=== PATIENT | female | born 1980 | race Caucasian/White ===

== ENCOUNTER 2018-06-20 14:32 | Observation (INO) ==
[2018-06-20] MEDS ORDERED: 0.9 % Sodium Chloride 1,000 ML IVC ONE (15:13)
[2018-06-20] MEDS ORDERED: Folic Acid 1 MG in D5% in Water 50 ML IVPB ONE (15:13)
[2018-06-20] MEDS ORDERED: *HR* LORazepam 2 MG/ML VIAL IVP ONE ×3 (15:13→19:15)
[2018-06-20] MEDS ORDERED: Thiamine (B-1) 100 MG in D5% in Water 50 ML IVPB ONE (15:13)
[2018-06-20] MEDS ORDERED: Isovue-370 500 ML INFUS..BTL IV ONE (15:44)
--- NOTE | 2018-06-20 15:56 | Emergency Department Note ---
Disposition Clinical Impression: Alcohol withdrawal syndrome Qualifiers: Complication of substance-induced condition: uncomplicated Qualified Code(s): F10.230 - Alcohol dependence with withdrawal, uncomplicated Disposition: Admitted As Inpatient Referrals: NONE,PCP [Primary Care Provider] - General Adult HPI - General Chief complaint: ED Alcohol Abuse Stated complaint: Alcohol withdrawl Time Seen by Provider: 06/20/18 14:41 Source: patient Limitations: no limitations - History of Present Illness Pain Scale: 0 - Related Data Home Medications Medication Instructions Recorded Confirmed Ibuprofen 08/13/16 Penicillin V Potassium 08/13/16 Prevacid 08/13/16 Prozac 08/13/16 TraZODone 08/13/16 Ultram 08/13/16 08/13/16 Viibryd 08/13/16 Zantac 08/13/16 Previous Rx's Medication Instructions Recorded Clindamycin HCl [Cleocin HCl] 300 mg PO QID #40 capsule 08/13/16 Hydrocodone/Acetaminophen [[place] 1 tab PO Q6H PRN #12 tab 08/13/16 5-325 Tablet] Allergies Allergy/AdvReac Type Severity Reaction Status Date / Time codeine Allergy Hives Verified 08/13/16 12:57 topiramate [From Topamax] Allergy Headache Verified 08/13/16 12:57 metoclopramide [From Reglan] AdvReac Hives Verified 08/13/16 12:57 Past Medical History - Past Medical History Medical history: Reports: non-contributory Psychiatric history: Reports: depression - Social History Smoking Status: Never smoker Smokeless Tobacco Status: No Alcohol use: Reports: heavy, recent Drug use: Reports: none Physical Exam - General Limitations: no limitations General appearance: alert, anxious Course Vital Signs Temperature 98.4 F 06/20/18 14:36 Pulse Rate 135 06/20/18 14:36 Respiratory Rate 24 06/20/18 14:36 Blood Pressure 133/79 06/20/18 14:36 O2 Sat by Pulse Oximetry 99 06/20/18 14:36 Temperature 98.4 F 06/20/18 15:05 Pulse Rate 88 06/20/18 15:37 Respiratory Rate 20 06/20/18 15:37 Blood Pressure 139/79 06/20/18 15:37 O2 Sat by Pulse Oximetry 100 06/20/18 15:37 Oxygen Delivery Oxygen Delivery Room Air Medical Decision Making - Lab Data Lab Results 06/20/18 06/20/18 Range/Units 15:35 15:38 Urine Test Negative (Negative) Ur Drug Screen Interp See Below Attestation Statement - Attestation Attestation: I examined this patient and my medical decision-making was reviewed with the Resident Physician. I agree with the documented findings, disposition and treatment plan as described except to the extent set forth below. 37 year old shannon bossente to the eD with complaints of nausea and vomitting and she is daily vodka drinker and that she has been unable to drink as [facility] as she typcally does because of the nausea and vomitting htat has been going on for the past few days. PAtnet is tahcyardiac and hypetensive and experneicn gincreased diarrhea. wE are concernd about withdrawl from alcohol in addition to other intraabdominla pathology. We will do labs, ABCT and start CIWA protocol and admit to medicine
[2018-06-20 15:58] LABS: Amphetamine Screen,Urine Negative ng/mL (Cutoff=1000); Barbiturate Screen,Urine Negative ng/mL (Cutoff=200); Benzodiazepines Screen,Urine Negative ng/mL (Cutoff=200); Cannabinoid Screen,Urine Negative ng/mL (Cutoff = 50); Cocaine Screen,Urine Negative ng/mL (Cutoff= 300); Opiate Screen,Urine Negative ng/mL (Cutoff=300); Phencyclidine Screen,Urine Negative ng/mL (Cutoff=25)
[2018-06-20 15:59] LABS: Basophils % 0.3 %; Hematocrit 42.8 % (35.3-44.9); Hemoglobin 15.1 g/dL (11.5-15.4); Immature Granulocytes % 0.5 % (0-4); Lymphocytes # 1.3 K/mcL (0.6-4.6); Lymphocytes % 11.1 %; Mean Corpuscular HGB Conc 35.3 g/dL (31.6-35.5); Mean Corpuscular Hemoglobin 32.5 pg (28.0-33.3); Mean Corpuscular Volume 92.2 fL (83.0-100.0); Mean Platelet Volume 9.4 fL (9.4-12.4); Neutrophils # 9.6 K/mcL (1.6-8.9); Platelet Count 223 K/mcL (140-400); Red Blood Count 4.64 M/mcL (3.82-4.97); Red Cell Distribution Width 13.5 % (11.5-14.5); Segmented Neutrophils % 80.1 %
[2018-06-20 16:18] LABS: Troponin I < 0.03 ng/mL (< 0.04)
[2018-06-20 16:19] LABS: Alanine Aminotransferase 58 Units/L (7-52); Albumin 4.8 g/dL (3.5-5.7); Albumin/Globulin Ratio 1.4 (1.1-2.2); Alkaline Phosphatase 67 Units/L (34-104); Aspartate Amino Transferase 92 Units/L (13-39); BUN/Creatinine Ratio 8 (6-26); Bilirubin,Direct 0.2 mg/dL (0.0-0.2); Bilirubin,Indirect 0.5 mg/dL (0.0-1.2); Bilirubin,Total 0.7 mg/dL (0.3-1.0); Blood Urea Nitrogen 6 mg/dL (6-20); Calcium 9.3 mg/dL (8.6-10.3); Carbon Dioxide 21 mEq/L (23-29); Chloride 97 mEq/L (98-107); Ethanol 405 mg/dL (Less than 10); Globulin 3.5 g/dL (2.4-3.5); Glucose 118 mg/dL (70-105); Lipase 20 Units/L (11-82); Osmolality,Calculated 287 (280-300); Potassium 3.2 mEq/L (3.5-5.1); Sodium 139 mEq/L (136-145); Total Protein 8.3 g/dL (6.4-8.9); eGFR For Non-African Americans > 60 (> 60)
[2018-06-20 16:35] LABS: Bilirubin,Urine Negative (Negative); Clarity,Urine Clear (Clear); Color,Urine Yellow (Yellow); Glucose,Urine (UA) Normal (Normal); Ketones,Urine 15 mg/dL (Negative)
[2018-06-20 16:36] LABS: Blood,Urine Negative (Negative); Leukocyte Esterase,Urine Negative (Negative); Nitrite,Urine Negative (Negative); Protein,Urine 100 mg/dL (Neg-Trace); Specific Gravity,Urine 1.011 (1.010-1.025); Squamous Epithelial Cell,Urine Few per lpf (None-Few); Urobilinogen,Urine Normal (Normal); WBC,Urine 0-3 per hpf (0-3)
[2018-06-20] MEDS ORDERED: Ondansetron 4 MG/2 ML VIAL IVP ONE (16:51)
--- NOTE | 2018-06-20 16:52 | Emergency Department Note ---
Disposition Clinical Impression: Alcohol withdrawal syndrome Qualifiers: Complication of substance-induced condition: uncomplicated Qualified Code(s): F10.230 - Alcohol dependence with withdrawal, uncomplicated Nausea and vomiting Qualifiers: Vomiting type: unspecified Vomiting Intractability: unspecified Qualified Code( s): R11.2 - Nausea with vomiting, unspecified Disposition: Admitted As Inpatient Condition: Fair Referrals: NONE,PCP [Primary Care Provider] - Forms: ED Satisfaction Letter Time of Disposition: 18:42 General Adult HPI - General Chief complaint: ED Alcohol Abuse Stated complaint: Alcohol withdrawl Time Seen by Provider: 06/20/18 14:41 Source: patient Mode of arrival: ambulatory Limitations: no limitations Nursing Notes Reviewed: Yes Vital Signs Reviewed: Yes - History of Present Illness HPI Narrative: Patient is a 29-year-old female with past medical history: Cystectomy and alcoholism presents emergency room in for evaluation of nausea, vomiting, diffuse body aches, chills that has been going on for the past 3 days. According to the patient and her friend at bedside she attempted stopping alcohol consumption 3 weeks ago and was unsuccessful and of drinking more alcohol is resolved. She states that she drinks liquor store vodka throughout the day. She denies any other type of alcohol use and denies any other drug ingestion. Pain Scale: 0 - Related Data Home Medications Medication Instructions Recorded Confirmed Vilazodone HCl [Viibryd] 40 mg PO DAILY 06/20/18 06/20/18 clonazePAM [Klonopin] 1 mg PO 2-3XD PRN 06/20/18 06/20/18 raNITIdine HCl [Zantac] 150 mg PO BID 06/20/18 06/20/18 traZODone [TraZODone] 50 - 100 mg PO HS 06/20/18 06/20/18 Allergies Allergy/AdvReac Type Severity Reaction Status Date / Time metoclopramide [From Reglan] Allergy Swelling Verified 06/20/18 16:10 of Lip/Tongue/Throat codeine AdvReac Gastrointestinal Verified 06/20/18 16:10 Upset topiramate [From Topamax] AdvReac See Verified 06/20/18 16:10 Comments All systems ED: reviewed and negative except as stated. Review of Systems: As Per HPI Constitutional: Reports: chills, weakness, other (Body aches). Denies: fever Cardiovascular: Denies: chest pain, palpitations, dyspnea on exertion Respiratory: Denies: cough, dyspnea, wheezes Gastrointestinal: Reports: abdominal pain, nausea, vomiting Genitourinary: Denies: urgency, dysuria, frequency Musculoskeletal: Denies: back pain, neck pain Integumentary: Denies: rash Neurological: Denies: headache, weakness, numbness, paresthesias, confusion Past Medical History - Past Medical History Attestation: Yes The following information was validated with the patient. Medical history: Reports: non-contributory Psychiatric history: Reports: depression - Social History Smoking Status: Never smoker Smokeless Tobacco Status: No Alcohol use: Reports: heavy, recent Drug use: Reports: none Physical Exam CONSTITUTIONAL: Patient is very anxious on exam. She is sitting up in bed rocking back and forth. Tachycardic. HEAD: Normocephalic; atraumatic EYES: PERRL, no scleral icterus NOSE: The nose is normal in appearance without rhinorrhea NECK: No JVD or distended neck veins RESP: Normal chest excursion with respiration; breath sounds clear and equal bilaterally; no wheezes, rhonchi, or rales CARD: Regular rhythm, without murmurs, rub or gallop ABD: Non-distended; non-tender, soft, without rigidity, rebound or guarding,no pulsatile mass CHEST: No pain with palpation SKIN: Normal for age and race; warm and dry without diaphoresis ; no apparent lesions EXTREMITIES: Pulses are 2 plus and equal times 4 extremities, no peripheral edema or calf muscle pain - General Limitations: no limitations General appearance: alert, anxious Course Course Narrative: Plan at this time is to do a broad workup including cardiac and abdominal examination. She will undergo a chest x-ray, EKG, basic labs as well as a CT of abdomen and pelvis. She also be treated with thiamine and Ativan for consideration for alcohol withdrawal. - Reevaluation(s) Reevaluation #1: Patient's lab work was unremarkable. Discussed with the patient plan is time is to admit her for EtOH withdrawal as well as intractable nausea and vomiting. Patient agrees with this plan and she is actually requesting admission for treatment of her alcohol withdrawal symptoms. I discussed the patient's case with the hospitalist on-call he agrees to accept the patient. Time: 18:42 Vital Signs Temperature 98.4 F 06/20/18 14:36 Pulse Rate 135 09/13/18 14:36 Respiratory Rate 24 06/20/18 14:36 Blood Pressure 133/79 06/20/18 14:36 O2 Sat by Pulse Oximetry 99 06/20/18 14:36 Temperature 98.4 F 06/20/18 15:05 Pulse Rate 116 06/20/18 17:26 Respiratory Rate 19 06/20/18 17:26 Blood Pressure 135/94 06/20/18 17:26 O2 Sat by Pulse Oximetry 100 06/20/18 17:26 Oxygen Delivery Oxygen Delivery Room Air Medical Decision Making - Medical Records Medical records reviewed: Yes I reviewed the patient's medical records. - Lab Data Lab results reviewed: Yes I reviewed the patient's lab results. Result diagrams: 06/20/18 15:13 06/20/18 15:13 Lab Results 06/20/18 06/20/18 06/20/18 Range/Units 15:13 15:13 15:30 WBC 11.9 H (4.3-11.1) K/mcL RBC 4.64 (3.82-4.97) M/mcL Hgb 15.1 (11.5-15.4) g/dL Hct 42.8 (35.3-44.9) % MCV 92.2 (83.0-100.0) fL MCH 32.5 (28.0-33.3) pg MCHC 35.3 (31.6-35.5) g/dL RDW 13.5 (11.5-14.5) % Plt Count 223 (140-400) K/mcL MPV 9.4 (9.4-12.4) fL Immature Gran % 0.5 (0-4) % Seg Neutrophils % 80.1 % Lymphocytes % 11.1 % Monocytes % 8.0 % Eosinophils % 0.0 % Basophils % 0.3 % Neutrophils # 9.6 H (1.6-8.9) K/mcL Lymphocytes # 1.3 (0.6-4.6) K/mcL Monocytes # 1.0 (0.0-1.3) K/mcL Eosinophils # 0.0 (0.0-0.6) K/mcL Basophils # 0.0 (0.0-0.2) K/mcL Sodium 139 (136-145) mEq/L Potassium 3.2 L (3.5-5.1) mEq/L Chloride 97 L (98-107) mEq/L Carbon Dioxide 21 L (23-29) mEq/L BUN 6 (6-20) mg/dL Creatinine 0.72 (0.60-1.20) mg/dL Est GFR ( Amer) > 60 (> 60) Est GFR (Non-Af Amer) > 60 (> 60) BUN/Creatinine Ratio 8 (6-26) Glucose 118 H (70-105) mg/dL Calculated Osmolality 287 (280-300) Calcium 9.3 (8.6-10.3) mg/dL Total Bilirubin 0.7 (0.3-1.0) mg/dL Direct Bilirubin 0.2 (0.0-0.2) mg/dL Indirect Bilirubin 0.5 (0.0-1.2) mg/dL AST 92 H (13-39) Units/L ALT 58 H (7-52) Units/L Alkaline Phosphatase 67 (34-104) Units/L Troponin I < 0.03 (< 0.04) ng/mL Serum Total Protein 8.3 (6.4-8.9) g/dL Albumin 4.8 (3.5-5.7) g/dL Globulin 3.5 (2.4-3.5) g/dL Albumin/Globulin Ratio 1.4 (1.1-2.2) Lipase 20 (11-82) Units/L Urine Color Yellow (Yellow) Urine Clarity Clear (Clear) Urine pH 6.0 (5.0-8.0) pH Units Ur Specific [place] 1.011 (1.010-1.025) Urine Protein 100 H (Neg-Trace) mg/dL Urine Glucose (UA) Normal (Normal) mg/dL Urine Ketones 15 H (Negative) mg/dL Urine Blood Negative (Negative) Urine Nitrite Negative (Negative) Urine Bilirubin Negative (Negative) Urine Urobilinogen Normal (Normal) mg/dL Ur Leukocyte Esterase Negative (Negative) Urine Microscopic WBC 0-3 (0-3) per hpf Ur Squamous Epith Cells Few (None-Few) per lpf Urine Test (Negative) Urine Opiates Screen (Qljqoe=845) ng/mL Ur Barbiturates Screen (Deszfh=290) ng/mL Ur Phencyclidine Scrn (Cutoff=25) ng/mL Ur Amphetamines Screen (Vperxo=1430) ng/mL U Benzodiazepines Scrn (Ckkixi=868) ng/mL Urine Cocaine Screen (Cutoff= 300) ng/mL U Marijuana (THC) Screen (Cutoff = 50) ng/mL Ur Drug Screen Interp Ethyl Alcohol 405 H (Less than 10) mg/dL 06/20/18 06/20/18 Range/Units 15:35 15:38 WBC (4.3-11.1) K/mcL RBC (3.82-4.97) M/mcL Hgb (11.5-15.4) g/dL Hct (35.3-44.9) % MCV (83.0-100.0) fL MCH (28.0-33.3) pg MCHC (31.6-35.5) g/dL RDW (11.5-14.5) % Plt Count (140-400) K/mcL MPV (9.4-12.4) fL Immature Gran % (0-4) % Seg Neutrophils % % Lymphocytes % % Monocytes % % Eosinophils % % Basophils % % Neutrophils # (1.6-8.9) K/mcL Lymphocytes # (0.6-4.6) K/mcL Monocytes # (0.0-1.3) K/mcL Eosinophils # (0.0-0.6) K/mcL Basophils # (0.0-0.2) K/mcL Sodium (136-145) mEq/L Potassium (3.5-5.1) mEq/L Chloride (98-107) mEq/L Carbon Dioxide (23-29) mEq/L BUN (6-20) mg/dL Creatinine (0.60-1.20) mg/dL Est GFR ( Amer) (> 60) Est GFR (Non-Af Amer) (> 60) BUN/Creatinine Ratio (6-26) Glucose (70-105) mg/dL Calculated Osmolality (280-300) Calcium (8.6-10.3) mg/dL Total Bilirubin (0.3-1.0) mg/dL Direct Bilirubin (0.0-0.2) mg/dL Indirect Bilirubin (0.0-1.2) mg/dL AST (13-39) Units/L ALT (7-52) Units/L Alkaline Phosphatase (34-104) Units/L Troponin I (< 0.04) ng/mL Serum Total Protein (6.4-8.9) g/dL Albumin (3.5-5.7) g/dL Globulin (2.4-3.5) g/dL Albumin/Globulin Ratio (1.1-2.2) Lipase (11-82) Units/L Urine Color (Yellow) Urine Clarity (Clear) Urine pH (5.0-8.0) pH Units Ur Specific [place] (1.010-1.025) Urine Protein (Neg-Trace) mg/dL Urine Glucose (UA) (Normal) mg/dL Urine Ketones (Negative) mg/dL Urine Blood (Negative) Urine Nitrite (Negative) Urine Bilirubin (Negative) Urine Urobilinogen (Normal) mg/dL Ur Leukocyte Esterase (Negative) Urine Microscopic WBC (0-3) per hpf Ur Squamous Epith Cells (None-Few) per lpf Urine Test Negative (Negative) Urine Opiates Screen Negative (Lwwtti=475) ng/mL Ur Barbiturates Screen Negative (Wgexmc=557) ng/mL Ur Phencyclidine Scrn Negative (Cutoff=25) ng/mL Ur Amphetamines Screen Negative (Riocxv=6017) ng/mL U Benzodiazepines Scrn Negative (Vpxbwn=988) ng/mL Urine Cocaine Screen Negative (Cutoff= 300) ng/mL U Marijuana (THC) Screen Negative (Cutoff = 50) ng/mL Ur Drug Screen Interp See Below Ethyl Alcohol (Less than 10) mg/dL - Radiology Data Radiology results reviewed: Yes I reviewed the patient's radiology results. Chest X-Ray 06/20/18 15:13 IMPRESSION: No acute abnormality. D/ / Reece Reyes MD / Reece Reyes MD Interpreting Provider: Reece Reyes MD Abdomen/Pelvis CT 06/20/18 15:44 IMPRESSION: No acute abnormality. D/ / 06/20/2018 17:56:34 Reece Reyes MD / earnold Interpreting Provider: Reece Reyes MD - EKG Data EKG #1 EKG attestation: Yes I reviewed and interpreted this EKG.
[2018-06-20] MEDS ORDERED: clonazePAM 1 MG TABLET PO PRN (20:23)
[2018-06-20] MEDS ORDERED: *HR* LORazepam 2 MG/ML VIAL IVP PRN (20:25)
--- NOTE | 2018-06-20 20:41 | Internal Med History&Physical ---
Date of Encounter: 06/20/18 Time of Encounter: 20:37 Internal Medicine - H&P: HPI Chief complaint: alcohol intoxication Admitted From: Home Plans for Post Hospital Care: Home History of present illness: Ms. Benitez is a 37 year old female with a history of depression and alcohol abuse disorder who is brought in by her boyfriend stating that she has been drinking vodka for 3 days straight without food and having profuse nausea and vomiting. Her last drink was earlier in the day and on arrival she was found to have an alcohol level of 400 and mild hypokalemia. She started going into a degree of withdrawal and is admitted for care. She denies any complaints at this time. She says she is hungry and wishes to eat. She denies abdominal pain. She acknowledges having depression and anxiety disorder but takes her medications intermittently. She has not noticed any blood in her vomitus. She has attempted to quit in the past but was unsuccessful. She denies smoking or illicit drugs. Past Med Surg Social Fam HX - Past Medical History Medical history: non-contributory Psychiatric history: depression - Past Surgical History Additional surgical history: Back sx, Knee sx, elbow sx - Social History Smoking Status: Never smoker Smokeless Tobacco Status: No Alcohol use: heavy, recent Drug use: none Internal Medicine - H&P: Meds Vilazodone HCl [Viibryd] 40 mg PO DAILY 06/20/18 [History] clonazePAM [Klonopin] 1 mg PO 2-3XD PRN 06/20/18 [History] raNITIdine HCl [Zantac] 150 mg PO BID 06/20/18 [History] traZODone [TraZODone] 50 - 100 mg PO HS 06/20/18 [History] 3 Allergy/AdvReac Type Severity Reaction Status Date / Time metoclopramide [From Reglan] Allergy Swelling Verified 06/20/18 16:10 of Lip/Tongue/Throat codeine AdvReac Gastrointestinal Verified 06/20/18 16:10 Upset topiramate [From Topamax] AdvReac See Verified 06/20/18 16:10 Comments All Systems PM: A 10-system review of systems was performed and is negative for pertinent findings except as documented above in the HPI. - Constitutional Vitals: Temp Pulse Resp BP Pulse Ox 99.6 F 102 16 135/62 98 06/20/18 20:26 06/20/18 20:26 06/20/18 20:26 06/20/18 20:26 06/20/18 20:26 Exam: Vitals: Reviewed General: Well developed white woman sitting comfortably in bed in no acute distress Skin: Bruises noted on thighs. HEENT: Moist mucous membranes. No conjunctivae pallor. Neck: No lymphadenopathy. No JVD. No carotid bruits. No palpable thyroid. Chest: Normal thoracic expansion. Normal breath sounds. Clear to auscultation. Heart: Normal S1 & S2; tachycardic. No rubs or murmurs. Abdomen: Non-distended, soft and non-tender to palpation. No peritoneal reaction. Liver is normal in size. Spleen is not palpable. Extremities: No clubbing, cyanosis or edema. No calf tenderness. Normal distal pulses. Neurological: Awake, alert and oriented to person, place and time. No focal deficits. No tremor. Psych: Affect appropriate. Internal Med - H&P Results - Labs CBC & Chem 7: 06/20/18 15:13 06/20/18 15:13 - Assessment and plan (1) Alcohol withdrawal syndrome Current Visit: Yes Status: Acute Assessment and plan: Reports a history of severe withdrawal symptoms in the past but no seizures. Will place on CIWA protocol, HOB elevation and aspiration precautions. Lorazepam prn ordered. IV folate and thiamine administered. Will transition to PO tomorrow. Start IV resuscitation with D5/NS w/ KCL for hypokalemia. Qualifiers: Complication of substance-induced condition: with unspecified complication Qualified Code(s): F10.239 - Alcohol dependence with withdrawal, unspecified (2) Nausea and vomiting Current Visit: Yes Status: Acute Assessment and plan: Promethazine prn ordered. Likely secondary to alcohol intoxication and now undergoing withdrawal. Lipase normal. No anomalies on CT imaging. Qualifiers: Vomiting type: unspecified Vomiting Intractability: non-intractable Qualified Code(s): R11.2 - Nausea with vomiting, unspecified (3) Hypokalemia Current Visit: Yes Status: Acute Assessment and plan: Secondary to poor oral intake. KCL supplementation added. Check Mg. (4) Anxiety Current Visit: Yes Status: Acute Assessment and plan: Will continue clonazepam as needed. Will hold trazodone as could possibly lower seizure threshold. (5) Depression Current Visit: Yes Status: Acute Assessment and plan: No suicidal ideation or harm ideas at this time. Will hold her anti-depressant for now. Qualifiers: Depression Type: unspecified Qualified Code(s): F32.9 - Major depressive disorder, single episode, unspecified (6) DVT prophylaxis Current Visit: Yes Status: Acute Assessment and plan: SubQ heparin ordered. - Time Spent With Patient Total time spent is greater than 50% in coordination of care (as documented) at patient's floor/unit and/or counseling patient: Greater than 35 minutes
[2018-06-20] MEDS ORDERED: *HR* LORazepam 2 MG/ML VIAL ONE (21:26)
[2018-06-20] MEDS: *HR* LORazepam 2 MG/ML VIAL IVP PRN ×2 (21:35→23:37)
[2018-06-20] MEDS: *HR* Promethazine 25 MG/ML VIAL IVP PRN (22:19)
[2018-06-20] MEDS: *HR* Heparin 5,000 UNIT/ML VIAL SQ SCH (22:19)
[2018-06-20] MEDS: Famotidine 20 MG TABLET PO SCH (22:20)
[2018-06-20] MEDS: Potassium Chloride 40 MEQ in D5% in 0.9% NACL 1,000 ML IVC SCH (23:37)
[2018-06-21] MEDS ORDERED: clonazePAM 1 MG TABLET PO PRN (00:35)
[2018-06-21] MEDS ORDERED: Ibuprofen 600 MG TABLET PO ONE (04:11)
[2018-06-21] MEDS ORDERED: *HR* LORazepam 2 MG/ML VIAL IVP STA (04:26)
[2018-06-21] MEDS ORDERED: *HR* LORazepam 2 MG/ML VIAL ONE (04:28)
[2018-06-21] MEDS: *HR* Heparin 5,000 UNIT/ML VIAL SQ SCH ×3 (05:41→20:21)
[2018-06-21] MEDS: *HR* LORazepam 2 MG/ML VIAL IVP PRN ×8 (05:41→21:29)
[2018-06-21 05:47] LABS: Basophils % 0.3 %; Hematocrit 36.7 % (35.3-44.9); Immature Granulocytes % 0.3 % (0-4); Lymphocytes # 0.4 K/mcL (0.6-4.6); Lymphocytes % 4.4 %; Mean Corpuscular HGB Conc 34.1 g/dL (31.6-35.5); Mean Corpuscular Hemoglobin 32.3 pg (28.0-33.3); Mean Corpuscular Volume 94.8 fL (83.0-100.0); Mean Platelet Volume 10.3 fL (9.4-12.4); Monocytes # 0.7 K/mcL (0.0-1.3); Monocytes % 9.1 %; Neutrophils # 6.8 K/mcL (1.6-8.9); Platelet Count 128 K/mcL (140-400); Red Blood Count 3.87 M/mcL (3.82-4.97); Red Cell Distribution Width 13.7 % (11.5-14.5); Segmented Neutrophils % 85.9 %
[2018-06-21 05:55] LABS: Hemoglobin 12.5 g/dL (11.5-15.4)
[2018-06-21 06:04] LABS: Alanine Aminotransferase 41 Units/L (7-52); Albumin/Globulin Ratio 1.5 (1.1-2.2); Alkaline Phosphatase 55 Units/L (34-104); Aspartate Amino Transferase 55 Units/L (13-39); BUN/Creatinine Ratio 9 (6-26); Bilirubin,Direct 0.2 mg/dL (0.0-0.2); Bilirubin,Indirect 0.8 mg/dL (0.0-1.2); Blood Urea Nitrogen 7 mg/dL (6-20); Carbon Dioxide 25 mEq/L (23-29); Chloride 100 mEq/L (98-107); Ethanol < 10 mg/dL (Less than 10); Globulin 2.7 g/dL (2.4-3.5); Glucose 162 mg/dL (70-105); Magnesium 1.6 mg/dL (1.6-2.6); Osmolality,Calculated 284 (280-300); Sodium 136 mEq/L (136-145); Total Protein 6.7 g/dL (6.4-8.9); eGFR For Non-African Americans > 60 (> 60)
[2018-06-21] MEDS: Thiamine (B-1) 100 MG TABLET PO SCH (08:11)
[2018-06-21] MEDS: Vitamin B Complex/Vit C/Vit E 1 EACH TABLET PO SCH (08:11)
[2018-06-21] MEDS: Famotidine 20 MG TABLET PO SCH ×2 (08:11→20:21)
[2018-06-21] MEDS: Potassium Chloride 40 MEQ in D5% in 0.9% NACL 1,000 ML IVC SCH (08:11)
[2018-06-21] MEDS: Folic Acid 1 MG TABLET PO SCH (08:11)
--- NOTE | 2018-06-21 18:49 | Internal Med Progress Note ---
Hospitalist Progress Note - Encounter Date of Encounter: 06/21/18 Time of Encounter: 18:46 - Subjective Interval History: Recent was seen and examined earlier this morning. Currently patient appears anxious and sweaty. Patient states "I feel as if I am going to jump out of my skin"slight tremor noted - Exam Vitals: Temp Pulse Resp BP Pulse Ox 98.6 F 91 18 132/81 99 06/21/18 16:21 06/21/18 16:21 06/21/18 16:21 06/21/18 16:21 06/21/18 16:21 Exam: Vitals: Reviewed General: Well developed white woman -appears diaphoretic slight tremor anxious Skin: Bruises noted on thighs. HEENT: Moist mucous membranes. No conjunctivae pallor. Neck: No lymphadenopathy. No JVD. No carotid bruits. No palpable thyroid. Chest: Normal thoracic expansion. Normal breath sounds. Clear to auscultation. Heart: Normal S1 & S2; tachycardic. No rubs or murmurs. Abdomen: Non-distended, soft and non-tender to palpation. No peritoneal reaction. Liver is normal in size. Spleen is not palpable. Extremities: No clubbing, cyanosis or edema. No calf tenderness. Normal distal pulses. Neurological: Awake, alert and oriented to person, place and time. No focal deficits. No tremor. Psych: Affect appropriate. - Assessment and Plan (1) Alcohol withdrawal syndrome Current Visit: Yes Status: Acute Assessment and Plan: Reports a history of severe withdrawal symptoms in the past but no seizures. Will place on CIWA protocol, HOB elevation and aspiration precautions. Lorazepam prn ordered. Thiamine and folate orally Monitor electrolytes and replace as needed We will start on Librium and monitor (2) Nausea and vomiting Current Visit: Yes Status: Acute Assessment and Plan: Promethazine prn ordered. Likely secondary to alcohol intoxication and now undergoing withdrawal. Lipase normal. No anomalies on CT imaging. (3) Anxiety Current Visit: Yes Status: Acute Assessment and Plan: Will stop clonazepam patient will be on Librium Will hold trazodone as could possibly lower seizure threshold. (4) Depression Current Visit: Yes Status: Acute Assessment and Plan: No suicidal ideation or harm ideas at this time. Will hold her anti-depressant for now. (5) DVT prophylaxis Current Visit: Yes Status: Acute Assessment and Plan: SubQ heparin ordered. (6) Hypokalemia Current Visit: Yes Status: Acute Assessment and Plan: Stable at this time continue to monitor and replace as needed. - Time Spent with Patient Total time spent is greater than 50% in coordination of care (as documented) at patient's floor/unit and/or counseling patient: Internal Medicine: Result - Labs CBC & Chem 7: 06/21/18 04:14 06/21/18 04:14 Labs: Short CBC 06/21/18 Range/Units 04:14 WBC 7.9 (4.3-11.1) K/mcL Hgb 12.5 D (11.5-15.4) g/dL Hct 36.7 (35.3-44.9) % Plt Count 128 L (140-400) K/mcL Neutrophils # 6.8 (1.6-8.9) K/mcL BMP 06/21/18 04:14 Sodium 136 Potassium 4.0 Chloride 100 Carbon Dioxide 25 BUN 7 Creatinine 0.80 Glucose 162 H Calcium 9.0 Liver Function 06/21/18 Range/Units 04:14 Total Bilirubin 1.0 (0.3-1.0) mg/dL Direct Bilirubin 0.2 (0.0-0.2) mg/dL AST 55 H (13-39) Units/L ALT 41 (7-52) Units/L Alkaline Phosphatase 55 (34-104) Units/L Albumin 4.0 (3.5-5.7) g/dL Consult Discharge Plan - Plan Referrals: NONE,PCP [Primary Care Provider] - (1) Alcohol withdrawal syndrome Qualifiers: Complication of substance-induced condition: with unspecified complication Qualified Code(s): F10.239 - Alcohol dependence with withdrawal, unspecified (2) Nausea and vomiting Qualifiers: Vomiting type: unspecified Vomiting Intractability: non-intractable Qualified Code(s): R11.2 - Nausea with vomiting, unspecified (4) Depression Qualifiers: Depression Type: unspecified Qualified Code(s): F32.9 - Major depressive disorder, single episode, unspecified
[2018-06-21] MEDS ORDERED: *HR* LORazepam 2 MG/ML VIAL IVP ONE (23:17)
[2018-06-22] MEDS: *HR* LORazepam 2 MG/ML VIAL IVP PRN ×4 (04:31→21:15)
[2018-06-22] MEDS: *HR* Heparin 5,000 UNIT/ML VIAL SQ SCH ×3 (04:35→21:15)
[2018-06-22 05:28] LABS: Basophils % 0.4 %; Eosinophils % 0.8 %; Hematocrit 35.3 % (35.3-44.9); Hemoglobin 11.6 g/dL (11.5-15.4); Immature Granulocytes % 0.2 % (0-4); Lymphocytes # 0.7 K/mcL (0.6-4.6); Lymphocytes % 13.3 %; Mean Corpuscular HGB Conc 32.9 g/dL (31.6-35.5); Mean Corpuscular Hemoglobin 31.8 pg (28.0-33.3); Mean Corpuscular Volume 96.7 fL (83.0-100.0); Mean Platelet Volume 10.2 fL (9.4-12.4); Monocytes # 0.6 K/mcL (0.0-1.3); Monocytes % 11.7 %; Neutrophils # 3.6 K/mcL (1.6-8.9); Platelet Count 114 K/mcL (140-400); Red Blood Count 3.65 M/mcL (3.82-4.97); Red Cell Distribution Width 13.3 % (11.5-14.5); Segmented Neutrophils % 73.6 %
[2018-06-22 05:42] LABS: BUN/Creatinine Ratio 13 (6-26); Blood Urea Nitrogen 9 mg/dL (6-20); Carbon Dioxide 26 mEq/L (23-29); Chloride 103 mEq/L (98-107); Glucose 97 mg/dL (70-105); Magnesium 1.7 mg/dL (1.6-2.6); Osmolality,Calculated 281 (280-300); Potassium 3.8 mEq/L (3.5-5.1); Sodium 136 mEq/L (136-145); eGFR For Non-African Americans > 60 (> 60)
[2018-06-22] MEDS: Vitamin B Complex/Vit C/Vit E 1 EACH TABLET PO SCH (08:28)
[2018-06-22] MEDS: (Vilazodone Hcl [Viibryd] 40 MG) PO SCH (08:28)
[2018-06-22] MEDS: Thiamine (B-1) 100 MG TABLET PO SCH (08:28)
[2018-06-22] MEDS: Famotidine 20 MG TABLET PO SCH ×2 (08:28→21:15)
[2018-06-22] MEDS: Folic Acid 1 MG TABLET PO SCH (08:28)
[2018-06-22] MEDS: *HR* Promethazine 25 MG/ML VIAL IVP PRN (09:42)
--- NOTE | 2018-06-22 11:41 | Internal Med Progress Note ---
Hospitalist Progress Note - Encounter Date of Encounter: 06/22/18 Time of Encounter: 11:40 - Subjective Interval History: Recent was seen and examined earlier this morning. Currently patient appears less anxious no tremors noted at this time. Patient has been tolerating oral intake. No signs of seizure activity. Patient states that she feels bad - Exam Vitals: Temp Pulse Resp BP Pulse Ox 98.2 F 95 16 136/92 99 06/22/18 07:53 06/22/18 07:53 06/22/18 07:53 06/22/18 07:53 06/22/18 08:30 Exam: Vitals: Reviewed General: Well developed white woman -appears calm no tremors noted Skin: Bruises noted on thighs. HEENT: Moist mucous membranes. No conjunctivae pallor. Neck: No lymphadenopathy. No JVD. No carotid bruits. No palpable thyroid. Chest: Normal thoracic expansion. Normal breath sounds. Clear to auscultation. Heart: Normal S1 & S2; tachycardic. No rubs or murmurs. Abdomen: Non-distended, soft and non-tender to palpation. No peritoneal reaction. Liver is normal in size. Spleen is not palpable. Extremities: No clubbing, cyanosis or edema. No calf tenderness. Normal distal pulses. Neurological: Awake, alert and oriented to person, place and time. No focal deficits. No tremor. Psych: Affect appropriate. - Assessment and Plan (1) Alcohol withdrawal syndrome Current Visit: Yes Status: Acute Assessment and Plan: Reports a history of severe withdrawal symptoms in the past but no seizures. Will place on [facility] protocol, HOB elevation and aspiration precautions. Lorazepam prn ordered. Thiamine and folate orally Monitor electrolytes and replace as needed We will start on Librium and monitor 06/22-symptoms improved since adding Librium we will continue -also continue with [facility] assessment electrolytes stable at this time (2) Nausea and vomiting Current Visit: Yes Status: Acute Assessment and Plan: Promethazine prn ordered. Likely secondary to alcohol intoxication and now undergoing withdrawal. Lipase normal. No anomalies on CT imaging. 06/22-improving today able to tolerate oral intake (3) Anxiety Current Visit: Yes Status: Acute Assessment and Plan: Will stop clonazepam patient will be on Librium Will hold trazodone as could possibly lower seizure threshold. Appears calm today (4) Depression Current Visit: Yes Status: Acute Assessment and Plan: No suicidal ideation or harm ideas at this time. Will hold her anti-depressant for now. (5) DVT prophylaxis Current Visit: Yes Status: Acute Assessment and Plan: SubQ heparin ordered. (6) Hypokalemia Current Visit: Yes Status: Acute Assessment and Plan: Stable at this time continue to monitor and replace as needed. - Time Spent with Patient Total time spent is greater than 50% in coordination of care (as documented) at patient's floor/unit and/or counseling patient: Internal Medicine: Result - Labs CBC & Chem 7: 06/22/18 04:09 06/22/18 04:09 Labs: Short CBC 06/22/18 Range/Units 04:09 WBC 5.0 (4.3-11.1) K/mcL Hgb 11.6 (11.5-15.4) g/dL Hct 35.3 (35.3-44.9) % Plt Count 114 L (140-400) K/mcL Neutrophils # 3.6 (1.6-8.9) K/mcL BMP 06/22/18 04:09 Sodium 136 Potassium 3.8 Chloride 103 Carbon Dioxide 26 BUN 9 Creatinine 0.68 Glucose 97 Calcium 9.0 Consult Discharge Plan - Plan Referrals: NONE,PCP [Primary Care Provider] - (1) Alcohol withdrawal syndrome Qualifiers: Complication of substance-induced condition: with unspecified complication Qualified Code(s): F10.239 - Alcohol dependence with withdrawal, unspecified (2) Nausea and vomiting Qualifiers: Vomiting type: unspecified Vomiting Intractability: non-intractable Qualified Code(s): R11.2 - Nausea with vomiting, unspecified (4) Depression Qualifiers: Depression Type: unspecified Qualified Code(s): F32.9 - Major depressive disorder, single episode, unspecified
[2018-06-23] MEDS: *HR* LORazepam 2 MG/ML VIAL IVP PRN ×2 (03:35→08:26)
[2018-06-23] MEDS: *HR* Heparin 5,000 UNIT/ML VIAL SQ SCH ×3 (06:09→19:48)
[2018-06-23 06:38] LABS: Basophils % 0.4 %; Eosinophils # 0.1 K/mcL (0.0-0.6); Eosinophils % 1.4 %; Hematocrit 38.3 % (35.3-44.9); Hemoglobin 13.1 g/dL (11.5-15.4); Immature Granulocytes % 0.2 % (0-4); Lymphocytes # 0.7 K/mcL (0.6-4.6); Lymphocytes % 13.2 %; Mean Corpuscular HGB Conc 34.2 g/dL (31.6-35.5); Mean Corpuscular Hemoglobin 33.5 pg (28.0-33.3); Mean Platelet Volume 10.3 fL (9.4-12.4); Monocytes # 0.7 K/mcL (0.0-1.3); Monocytes % 12.8 %; Neutrophils # 3.7 K/mcL (1.6-8.9); Platelet Count 107 K/mcL (140-400); Red Blood Count 3.91 M/mcL (3.82-4.97); Red Cell Distribution Width 12.9 % (11.5-14.5)
[2018-06-23 07:00] LABS: BUN/Creatinine Ratio 14 (6-26); Blood Urea Nitrogen 10 mg/dL (6-20); Calcium 9.2 mg/dL (8.6-10.3); Carbon Dioxide 26 mEq/L (23-29); Chloride 103 mEq/L (98-107); Glucose 116 mg/dL (70-105); Osmolality,Calculated 284 (280-300); Sodium 137 mEq/L (136-145); eGFR For Non-African Americans > 60 (> 60)
[2018-06-23] MEDS: (Vilazodone Hcl [Viibryd] 40 MG) PO SCH (08:25)
[2018-06-23] MEDS: Famotidine 20 MG TABLET PO SCH ×2 (08:26→19:48)
[2018-06-23] MEDS: Folic Acid 1 MG TABLET PO SCH (08:26)
[2018-06-23] MEDS: Thiamine (B-1) 100 MG TABLET PO SCH (08:26)
[2018-06-23] MEDS: Vitamin B Complex/Vit C/Vit E 1 EACH TABLET PO SCH (08:26)
--- NOTE | 2018-06-23 11:27 | Internal Med Progress Note ---
Hospitalist Progress Note - Encounter Date of Encounter: 06/23/18 Time of Encounter: 11:24 - Subjective Interval History: Patient was seen and examined earlier this morning. Currently patient appears less anxious no tremors noted at this time. She has been ambulating in the halls without difficulty no nausea tolerating more oral intake - Exam Vitals: Temp Pulse Resp BP Pulse Ox 98.5 F 82 16 126/80 99 06/23/18 07:37 06/23/18 07:37 06/23/18 07:37 06/23/18 07:37 06/23/18 08:30 Exam: Vitals: Reviewed General: Well developed white woman -appears calm no tremors noted Skin: Bruises noted on thighs. HEENT: Moist mucous membranes. No conjunctivae pallor. Neck: No lymphadenopathy. No JVD. No carotid bruits. No palpable thyroid. Chest: Normal thoracic expansion. Normal breath sounds. Clear to auscultation. Heart: Normal S1 & S2; tachycardic. No rubs or murmurs. Abdomen: Non-distended, soft and non-tender to palpation. No peritoneal reaction. Liver is normal in size. Spleen is not palpable. Extremities: No clubbing, cyanosis or edema. No calf tenderness. Normal distal pulses. Neurological: Awake, alert and oriented to person, place and time. No focal deficits. No tremor. Psych: Affect appropriate. - Assessment and Plan (1) Alcohol withdrawal syndrome Current Visit: Yes Status: Acute Assessment and Plan: Reports a history of severe withdrawal symptoms in the past but no seizures. Will place on [facility] protocol, HOB elevation and aspiration precautions. Lorazepam prn ordered. Thiamine and folate orally Monitor electrolytes and replace as needed We will start on Librium and monitor 06/22-symptoms improved since adding Librium we will continue -also continue with [facility] assessment electrolytes stable at this time 06/23 symptoms are improving patient has been eating and ambulating in the hallways without lites are stable at this time we will discuss with social insurance analyst tomorrow concerning discharge planning continue with [facility] for now (2) Nausea and vomiting Current Visit: Yes Status: Acute Assessment and Plan: Promethazine prn ordered. Likely secondary to alcohol intoxication and now undergoing withdrawal. Lipase normal. No anomalies on CT imaging. 06/22-improving today able to tolerate oral intake 06/23 improved tolerating oral intake (3) Anxiety Current Visit: Yes Status: Acute Assessment and Plan: Will stop clonazepam patient will be on Librium Will hold trazodone as could possibly lower seizure threshold. Appears calm today 06/23 much improved appears calm ambulating in the hallway (4) Depression Current Visit: Yes Status: Acute Assessment and Plan: No suicidal ideation or harm ideas at this time. Will hold her anti-depressant for now. (5) DVT prophylaxis Current Visit: Yes Status: Acute Assessment and Plan: SubQ heparin ordered. (6) Hypokalemia Current Visit: Yes Status: Acute Assessment and Plan: Stable at this time continue to monitor and replace as needed. - Time Spent with Patient Total time spent is greater than 50% in coordination of care (as documented) at patient's floor/unit and/or counseling patient: Internal Medicine: Result - Labs CBC & Chem 7: 06/23/18 06:05 06/23/18 06:05 Labs: Short CBC 06/23/18 Range/Units 06:05 WBC 5.1 (4.3-11.1) K/mcL Hgb 13.1 D (11.5-15.4) g/dL Hct 38.3 (35.3-44.9) % Plt Count 107 L (140-400) K/mcL Neutrophils # 3.7 (1.6-8.9) K/mcL BMP 06/23/18 06:05 Sodium 137 Potassium 4.0 Chloride 103 Carbon Dioxide 26 BUN 10 Creatinine 0.72 Glucose 116 H Calcium 9.2 Consult Discharge Plan - Plan Referrals: NONE,PCP [Primary Care Provider] - (1) Alcohol withdrawal syndrome Qualifiers: Complication of substance-induced condition: with unspecified complication Qualified Code(s): F10.239 - Alcohol dependence with withdrawal, unspecified (2) Nausea and vomiting Qualifiers: Vomiting type: unspecified Vomiting Intractability: non-intractable Qualified Code(s): R11.2 - Nausea with vomiting, unspecified (4) Depression Qualifiers: Depression Type: unspecified Qualified Code(s): F32.9 - Major depressive disorder, single episode, unspecified
[2018-06-24] MEDS: *HR* LORazepam 2 MG/ML VIAL IVP PRN (03:54)
[2018-06-24] MEDS: *HR* Heparin 5,000 UNIT/ML VIAL SQ SCH ×3 (05:00→20:05)
[2018-06-24 06:18] LABS: Basophils % 0.5 %; Eosinophils # 0.1 K/mcL (0.0-0.6); Eosinophils % 0.9 %; Hematocrit 38.7 % (35.3-44.9); Hemoglobin 12.9 g/dL (11.5-15.4); Immature Granulocytes % 0.2 % (0-4); Lymphocytes # 0.8 K/mcL (0.6-4.6); Lymphocytes % 13.3 %; Mean Corpuscular HGB Conc 33.3 g/dL (31.6-35.5); Mean Corpuscular Hemoglobin 32.3 pg (28.0-33.3); Mean Corpuscular Volume 96.8 fL (83.0-100.0); Mean Platelet Volume 10.3 fL (9.4-12.4); Monocytes # 0.7 K/mcL (0.0-1.3); Monocytes % 11.9 %; Neutrophils # 4.2 K/mcL (1.6-8.9); Platelet Count 121 K/mcL (140-400); Red Cell Distribution Width 13.2 % (11.5-14.5); Segmented Neutrophils % 73.2 %
[2018-06-24 06:35] LABS: BUN/Creatinine Ratio 18 (6-26); Blood Urea Nitrogen 14 mg/dL (6-20); Calcium 9.2 mg/dL (8.6-10.3); Carbon Dioxide 28 mEq/L (23-29); Chloride 102 mEq/L (98-107); Glucose 110 mg/dL (70-105); Osmolality,Calculated 283 (280-300); Potassium 4.1 mEq/L (3.5-5.1); Sodium 136 mEq/L (136-145); eGFR For Non-African Americans > 60 (> 60)
[2018-06-24] MEDS: Vitamin B Complex/Vit C/Vit E 1 EACH TABLET PO SCH (09:53)
[2018-06-24] MEDS: Thiamine (B-1) 100 MG TABLET PO SCH (09:53)
[2018-06-24] MEDS: Folic Acid 1 MG TABLET PO SCH (09:53)
[2018-06-24] MEDS: Famotidine 20 MG TABLET PO SCH ×2 (09:53→20:07)
[2018-06-24] MEDS: (Vilazodone Hcl [Viibryd] 40 MG) PO SCH (09:54)
[2018-06-24] MEDS ORDERED: Acetaminophen 325 MG TABLET PO PRN (14:22)
--- NOTE | 2018-06-24 15:46 | Internal Med Progress Note ---
Hospitalist Progress Note - Encounter Date of Encounter: 06/24/18 Time of Encounter: 15:44 - Subjective Interval History: Patient was seen and examined earlier this morning. Other appropriate no tremors noted has been intimating in hallways without difficulties. Patient states she feels much better. Has been tolerating oral intake - Exam Vitals: Temp Pulse Resp BP Pulse Ox 97.8 F 67 18 96/53 99 06/24/18 11:32 06/24/18 11:32 06/24/18 11:32 06/24/18 11:32 06/24/18 11:32 Exam: Vitals: Reviewed General: Well developed white woman -appears calm no tremors noted Skin: Bruises noted on thighs. HEENT: Moist mucous membranes. No conjunctivae pallor. Neck: No lymphadenopathy. No JVD. No carotid bruits. No palpable thyroid. Chest: Normal thoracic expansion. Normal breath sounds. Clear to auscultation. Heart: Normal S1 & S2; tachycardic. No rubs or murmurs. Abdomen: Non-distended, soft and non-tender to palpation. No peritoneal reaction. Liver is normal in size. Spleen is not palpable. Extremities: No clubbing, cyanosis or edema. No calf tenderness. Normal distal pulses. Neurological: Awake, alert and oriented to person, place and time. No focal deficits. No tremor. Psych: Affect appropriate. - Assessment and Plan (1) Alcohol withdrawal syndrome Current Visit: Yes Status: Acute Assessment and Plan: Reports a history of severe withdrawal symptoms in the past but no seizures. Will place on [facility] protocol, HOB elevation and aspiration precautions. Lorazepam prn ordered. Thiamine and folate orally Monitor electrolytes and replace as needed We will start on Librium and monitor 06/22-symptoms improved since adding Librium we will continue -also continue with [facility] assessment electrolytes stable at this time 06/23 symptoms are improving patient has been eating and ambulating in the hallways without lites are stable at this time we will discuss with social professionals tomorrow concerning discharge planning continue with [facility] for now 06/24 symptoms are improving patient has been ambulating in hallways without difficulty she has been tolerating oral intake. Discussed with social professionals concerning discharge planning patient requesting outpatient treatment. We will decrease Librium and continue to taper (2) Nausea and vomiting Current Visit: Yes Status: Acute Assessment and Plan: Promethazine prn ordered. Likely secondary to alcohol intoxication and now undergoing withdrawal. Lipase normal. No anomalies on CT imaging. 06/22-improving today able to tolerate oral intake 06/23 improved tolerating oral intake 06/24 no nausea and vomiting at this time tolerating oral intake (3) Anxiety Current Visit: Yes Status: Acute Assessment and Plan: Will stop clonazepam patient will be on Librium Will hold trazodone as could possibly lower seizure threshold. Appears calm today 06/23 much improved appears calm ambulating in the hallway 06/24 much stable at this time (4) Depression Current Visit: Yes Status: Acute Assessment and Plan: No suicidal ideation or harm ideas at this time. Will hold her anti-depressant for now. (5) DVT prophylaxis Current Visit: Yes Status: Acute Assessment and Plan: SubQ heparin ordered. (6) Hypokalemia Current Visit: Yes Status: Acute Assessment and Plan: Stable at this time continue to monitor and replace as needed. - Time Spent with Patient Total time spent is greater than 50% in coordination of care (as documented) at patient's floor/unit and/or counseling patient: Internal Medicine: Result - Labs CBC & Chem 7: 06/24/18 05:28 06/24/18 05:28 Labs: Short CBC 06/24/18 Range/Units 05:28 WBC 5.7 (4.3-11.1) K/mcL Hgb 12.9 (11.5-15.4) g/dL Hct 38.7 (35.3-44.9) % Plt Count 121 L (140-400) K/mcL Neutrophils # 4.2 (1.6-8.9) K/mcL BMP 06/24/18 05:28 Sodium 136 Potassium 4.1 Chloride 102 Carbon Dioxide 28 BUN 14 Creatinine 0.78 Glucose 110 H Calcium 9.2 Consult Discharge Plan - Plan Referrals: NONE,PCP [Primary Care Provider] - (1) Alcohol withdrawal syndrome Qualifiers: Complication of substance-induced condition: with unspecified complication Qualified Code(s): F10.239 - Alcohol dependence with withdrawal, unspecified (2) Nausea and vomiting Qualifiers: Vomiting type: unspecified Vomiting Intractability: non-intractable Qualified Code(s): R11.2 - Nausea with vomiting, unspecified (4) Depression Qualifiers: Depression Type: unspecified Qualified Code(s): F32.9 - Major depressive disorder, single episode, unspecified
[2018-06-25] MEDS: *HR* LORazepam 2 MG/ML VIAL IVP PRN (01:27)
[2018-06-25] MEDS: *HR* Heparin 5,000 UNIT/ML VIAL SQ SCH ×3 (05:23→20:16)
[2018-06-25 06:48] LABS: Basophils % 0.5 %; Eosinophils # 0.1 K/mcL (0.0-0.6); Hematocrit 40.2 % (35.3-44.9); Hemoglobin 13.5 g/dL (11.5-15.4); Immature Granulocytes % 0.3 % (0-4); Lymphocytes # 1.1 K/mcL (0.6-4.6); Mean Corpuscular HGB Conc 33.6 g/dL (31.6-35.5); Mean Corpuscular Hemoglobin 33.1 pg (28.0-33.3); Mean Corpuscular Volume 98.5 fL (83.0-100.0); Mean Platelet Volume 10.5 fL (9.4-12.4); Monocytes # 0.7 K/mcL (0.0-1.3); Monocytes % 12.1 %; Neutrophils # 4.1 K/mcL (1.6-8.9); Platelet Count 128 K/mcL (140-400); Red Blood Count 4.08 M/mcL (3.82-4.97); Red Cell Distribution Width 13.2 % (11.5-14.5); Segmented Neutrophils % 68.1 %
[2018-06-25 07:12] LABS: BUN/Creatinine Ratio 18 (6-26); Blood Urea Nitrogen 14 mg/dL (6-20); Calcium 9.1 mg/dL (8.6-10.3); Carbon Dioxide 28 mEq/L (23-29); Chloride 102 mEq/L (98-107); Glucose 95 mg/dL (70-105); Osmolality,Calculated 282 (280-300); Potassium 3.6 mEq/L (3.5-5.1); Sodium 136 mEq/L (136-145); eGFR For Non-African Americans > 60 (> 60)
[2018-06-25] MEDS: Folic Acid 1 MG TABLET PO SCH (08:16)
[2018-06-25] MEDS: Vitamin B Complex/Vit C/Vit E 1 EACH TABLET PO SCH (08:16)
[2018-06-25] MEDS: (Vilazodone Hcl [Viibryd] 40 MG) PO SCH (08:17)
[2018-06-25] MEDS: Thiamine (B-1) 100 MG TABLET PO SCH (08:17)
[2018-06-25] MEDS: Famotidine 20 MG TABLET PO SCH ×2 (08:50→20:14)
--- NOTE | 2018-06-25 11:24 | Internal Med Progress Note ---
Hospitalist Progress Note - Encounter Date of Encounter: 06/25/18 Time of Encounter: 11:22 - Subjective Interval History: no acute changes overnight, continues to deny s/sx of withdrawal including hallucinations (auditory or visual), tremors, or agitation. Reporting that she is feeling much better today - Exam Vitals: Temp Pulse Resp BP Pulse Ox 98.6 F 70 18 122/79 99 06/25/18 10:08 06/25/18 10:08 06/25/18 10:08 06/25/18 10:06/25/18 10:08 Exam: Vitals: Reviewed General: Well developed white woman -appears calm no tremors noted Skin: Bruises noted on thighs. HEENT: Moist mucous membranes. No conjunctivae pallor. Neck: No lymphadenopathy. No JVD. No carotid bruits. No palpable thyroid. Chest: Normal thoracic expansion. Normal breath sounds. Clear to auscultation. Heart: Normal S1 & S2; tachycardic. No rubs or murmurs. Abdomen: Non-distended, soft and non-tender to palpation. No peritoneal reaction. Liver is normal in size. Spleen is not palpable. Extremities: No clubbing, cyanosis or edema. No calf tenderness. Normal distal pulses. Neurological: Awake, alert and oriented to person, place and time. No focal deficits. No tremor. Psych: Affect appropriate, without agitation, auditory or visual hallucinations - Assessment and Plan (1) Alcohol withdrawal syndrome Current Visit: Yes Status: Acute Assessment and Plan: Reports a history of severe withdrawal symptoms in the past but no seizures. Will place on [facility] protocol, HOB elevation and aspiration precautions. Lorazepam prn ordered. Thiamine and folate orally Monitor electrolytes and replace as needed We will start on Librium and monitor 06/22-symptoms improved since adding Librium we will continue -also continue with [facility] assessment electrolytes stable at this time 06/23 symptoms are improving patient has been eating and ambulating in the hallways without lites are stable at this time we will discuss with group social worker tomorrow concerning discharge planning continue with [facility] for now 06/24 symptoms are improving patient has been ambulating in hallways without difficulty she has been tolerating oral intake. Discussed with group social worker concerning discharge planning patient requesting outpatient treatment. We will decrease Librium and continue to taper 06/25--clinically, patient appears to be without signs or symptoms of withdrawal. She denies any auditory/visual hallucinations. She is not anxious or agitated at this time. No evidence of tremors. Nausea and vomiting and diarrhea have subsided. Continue to down titrate Librium today and stop tomorrow. Refrain from discharging with benzodiazepines with history of alcoholism. Discussed outpatient follow-up and resources regarding treatment for alcoholism. Patient reports that she has a psychiatrist who she follows closely and will discuss AA programs with psychiatrist. rn social services has seen patient during the stay and provided pamphlet/brochures for AA and SA. (2) Nausea and vomiting Current Visit: Yes Status: Resolved Assessment and Plan: Promethazine prn ordered. Likely secondary to alcohol intoxication and now undergoing withdrawal. Lipase normal. No anomalies on CT imaging. 06/22-improving today able to tolerate oral intake 06/23 improved tolerating oral intake 06/24 no nausea and vomiting at this time tolerating oral intake 06/25-resolved (3) Anxiety Current Visit: Yes Status: Acute Assessment and Plan: Will stop clonazepam patient will be on Librium Will hold trazodone as could possibly lower seizure threshold. Appears calm today 06/23 much improved appears calm ambulating in the hallway 06/24 much stable at this time 06/25--appears calm at this time, mood is appropriate without agitation. Does not appear anxious. (4) Depression Current Visit: Yes Status: Acute Assessment and Plan: No suicidal suicidal or homicidal ideation Continue holding her anti-depressant for now, resume tomorrow when Librium was discontinued (5) Hypokalemia Current Visit: Yes Status: Acute Assessment and Plan: Resolved (6) DVT prophylaxis Current Visit: Yes Status: Acute Assessment and Plan: Continue SubQ heparin - Time Spent with Patient Total time spent is greater than 50% in coordination of care (as documented) at patient's floor/unit and/or counseling patient: less than 15 minutes Plan of Care Discussed with: patient Internal Medicine: Result - Labs CBC & Chem 7: 06/25/18 05:10 06/25/18 05:10 Labs: Short CBC 06/25/18 Range/Units 05:10 WBC 6.1 (4.3-11.1) K/mcL Hgb 13.5 (11.5-15.4) g/dL Hct 40.2 (35.3-44.9) % Plt Count 128 L (140-400) K/mcL Neutrophils # 4.1 (1.6-8.9) K/mcL BMP 06/25/18 05:10 Sodium 136 Potassium 3.6 Chloride 102 Carbon Dioxide 28 BUN 14 Creatinine 0.80 Glucose 95 Calcium 9.1 Consult Discharge Plan - Plan Referrals: NONE,PCP [Primary Care Provider] - (1) Alcohol withdrawal syndrome Qualifiers: Complication of substance-induced condition: with unspecified complication Qualified Code(s): F10.239 - Alcohol dependence with withdrawal, unspecified (2) Nausea and vomiting Qualifiers: Vomiting type: unspecified Vomiting Intractability: non-intractable Qualified Code(s): R11.2 - Nausea with vomiting, unspecified (4) Depression Qualifiers: Depression Type: unspecified Qualified Code(s): F32.9 - Major depressive disorder, single episode, unspecified
[2018-06-26] MEDS: *HR* Heparin 5,000 UNIT/ML VIAL SQ SCH (05:45)
[2018-06-26] MEDS: Famotidine 20 MG TABLET PO SCH (07:36)
[2018-06-26] MEDS: Vitamin B Complex/Vit C/Vit E 1 EACH TABLET PO SCH (07:36)
[2018-06-26] MEDS: Folic Acid 1 MG TABLET PO SCH (07:36)
[2018-06-26] MEDS: Thiamine (B-1) 100 MG TABLET PO SCH (07:36)
[2018-06-26] MEDS: (Vilazodone Hcl [Viibryd] 40 MG) PO SCH (07:37)
--- NOTE | 2018-06-26 10:44 | Discharge Summary ---
- NOTES TO OUTPATIENT PROVIDER Notes to Outpatient Provider: Please discuss resources for AA and outpatient ETOH rehab. Please discuss mayda f/u with psychiatrist Date of Encounter: 06/26/18 Time of Encounter: 10:41 - Discharge Diagnosis (1) Alcohol withdrawal syndrome Priority: Primary Status: Acute Assessment and Plan: Reports a history of severe withdrawal symptoms in the past but no seizures. Will place on CIWA protocol, HOB elevation and aspiration precautions. Lorazepam prn ordered. Thiamine and folate orally Monitor electrolytes and replace as needed We will start on Librium and monitor 06/22-symptoms improved since adding Librium we will continue -also continue with CIWA assessment electrolytes stable at this time 06/23 symptoms are improving patient has been eating and ambulating in the hallways without lites are stable at this time we will discuss with administrator social welfare tomorrow concerning discharge planning continue with [facility] for now 06/24 symptoms are improving patient has been ambulating in hallways without difficulty she has been tolerating oral intake. Discussed with administrator social welfare concerning discharge planning patient requesting outpatient treatment. We will decrease Librium and continue to taper 06/25--clinically, patient appears to be without signs or symptoms of withdrawal. She denies any auditory/visual hallucinations. She is not anxious or agitated at this time. No evidence of tremors. Nausea and vomiting and diarrhea have subsided. Continue to down titrate Librium today and stop tomorrow. Refrain from discharging with benzodiazepines with history of alcoholism. Discussed outpatient follow-up and resources regarding treatment for alcoholism. Patient reports that she has a psychiatrist who she follows closely and will discuss AA programs with psychiatrist. building services supervisor has seen patient during the stay and provided pamphlet/brochures for AA and SA. 06/26- No s/sx of withdrawal this morning. Received last dose of Librium this morning. She is requesting to discharge this morning stating " I have resources and will seek treatment when I leave" Qualifiers: Complication of substance-induced condition: with unspecified complication Qualified Code(s): F10.239 - Alcohol dependence with withdrawal, unspecified (2) Nausea and vomiting Priority: Secondary Status: Resolved Qualifiers: Vomiting type: unspecified Vomiting Intractability: non-intractable Qualified Code(s): R11.2 - Nausea with vomiting, unspecified (3) Anxiety Priority: Secondary Status: Acute (4) Depression Priority: Secondary Status: Acute Qualifiers: Depression Type: unspecified Qualified Code(s): F32.9 - Major depressive disorder, single episode, unspecified (5) Hypokalemia Priority: Secondary Status: Acute (6) DVT prophylaxis Priority: Secondary Status: Acute Hospital course: Ms. Benitez is a 37 year old female admitted with ETOH abuse with a serum ETOH of 400 and 3-day h/o N/V. Additionally, patient has opiate addiction. While inpatient she experienced ETOH withdrawal and was treated with CIWA protocol. She received a Librium taper during stay and s/sx of withdrawal resolved. Librium stopped prior to D/C. Additionally SS and NN assisting with d/c planning and discussed resources for AA and SA. I confirmed with the patient that she did receive his resources and she was able to verbalize understanding and need for follow-up with AA and SA. She has remained without withdrawal symptoms for greater than 48 hours prior to discharge. She is discharging home with her and has identified him as a resource to assist with cessation of alcohol and narcotic abuse. She has been instructed to follow-up with her PCP within 1 week of discharge. Additionally, she has been instructed to follow -up with her psychiatrist within 1 week of discharge. Given her propensity for alcohol abuse as well as opiate abuse I have discontinued her benzodiazepines due to risk of overdose in conjunction with alcohol and opiate abuse. Discharge discussed with: patient - Time Spent with Patient Total time spent providing and/or coordinating discharge services: Less than 30 minutes - Discharge Medications Home Medications: Vilazodone HCl [Viibryd] 40 mg PO DAILY 06/20/18 [History] raNITIdine HCl [Zantac] 150 mg PO BID 06/20/18 [History] Folic Acid 1 mg PO DAILY tablet 06/26/18 [Rx] Thiamine (B-1) [Vitamin B-1] 100 mg PO DAILY tablet 06/26/18 [Rx] Vitamin B Complex/Vit C/Vit E [Stresstab] 1 each PO DAILY tablet 06/26/18 [Rx] Allergies/Adverse Reactions: 3 Allergy/AdvReac Type Severity Reaction Status Date / Time metoclopramide [From Reglan] Allergy Swelling Verified 06/20/18 16:10 of Lip/Tongue/Throat codeine AdvReac Gastrointestinal Verified 06/20/18 16:10 Upset topiramate [From Topamax] AdvReac See Verified 06/20/18 16:10 Comments Date of admission: 06/20/18 19:14 Primary care physician: PCP NONE Consults: 06/20/18 20:39 Consult to [facility] [CONS] Routine Reason for SW Consult: Patient interest in possible rehab for ETOh or resources Discharging clinician: Bernabe Leigh Anticipated date of discharge: 06/26/18 - Constitutional Vitals: Temp Pulse Resp BP Pulse Ox 98.0 F 89 20 113/71 99 06/26/18 07:35 06/26/18 07:35 06/26/18 07:35 06/26/18 07:35 06/26/18 07:35 General appearance: Present: A&O X 3 Exam: . - Head Head exam: Present: atraumatic, normocephalic - Eye Eye exam: Present: PERRL, conjuntiva pink, sclera anicteric Pupils: Present: PERRL - Neck Neck exam general surgery: Present: supple, trachea midline. Absent: lymphadenopathy - Respiratory Respiratory exam: Present: CTAB. Absent: accessory muscle use, rales, rhonchi, wheezes - Cardiovascular Cardiovascular exam: Present: RRR, +S1, +S2. Absent: diastolic murmur, gallop, rubs, systolic murmur - GI/Abdominal GI/Abdominal exam: Present: normal bowel sounds, soft, no peritoneal signs. Absent: distended, tenderness - Extremities Exam Extremities exam: Present: warm, radial pulses palpable and symmetrical. Absent : calf tenderness, cyanotic, pedal edema - Neurological Exam Neurological exam: Present: CN II-XII intact, oriented X3, no focal deficits. Absent: pronater drift, facial droop, speech deficit - Skin Skin exam: Present: dry, intact - Patient Status Disposition: Home, Self-Care Condition: Fair Functional capacity at discharge: independent ambulation Overall status at discharge: patient is progressing back to baseline - Discharge Instructions Instructions: Depression (DC), Anxiety (DC) Follow Up With: NONE,PCP [Primary Care Provider] - - Diet and Activity Activity: increase activity as tolerated, resume usual activities as tolerated Diet: advance to your usual diet
[2018-06-26 12:23] VITALS: BP 116/74
== END 2018-06-26 12:58 | disposition home or self-care (01) ==
LOC: EMEROOARM 14:32 → 3BNU 14:32
PROVIDERS: ADMIT Student in an Organized Health Care Education/Training Program; ATTEND Student in an Organized Health Care Education/Training Program

== ENCOUNTER 2018-08-23 09:29 | Observation (INO) ==
[2018-08-23] MEDS ORDERED: Renal Vitamin 1 CAP CAPSULE PO STA (09:51)
[2018-08-23] MEDS ORDERED: Thiamine (B-1) 100 MG TABLET PO STA (09:51)
--- NOTE | 2018-08-23 09:53 | Emergency Department Note ---
Disposition Clinical Impression: Suicidal ideation Acute alcohol intoxication Qualifiers: Complication of substance-induced condition: uncomplicated Qualified Code(s): F10.929 - Alcohol use, unspecified with intoxication, unspecified Disposition: Admitted As Inpatient Condition: Fair Referrals: Farhana Patel MD [Partnered Physician] - NONE,PCP [Primary Care Provider] - Forms: ED Satisfaction Letter Time of Disposition: 09:52 General Adult HPI - General Chief complaint: ED Alcohol Abuse Stated complaint: "withdrawals from alcohol,wants help" Time Seen by Provider: 08/23/18 09:34 Source: patient, family Mode of arrival: ambulatory Limitations: other (intoxicated) Nursing Notes Reviewed: Yes Vital Signs Reviewed: Yes - History of Present Illness HPI Narrative: 37-year-old female with significant past medical history of alcohol abuse presenting to the emergency department with chief complaint of "needing help to detox". Patient states she drinks 3-4 pints of vodka daily. Patient has been drinking like this for approximately a year and a half. Was admitted approximately 2 months ago for alcohol withdrawal and intractable nausea and vomiting. [facility] could provide the patient with outpatient references for alcohol detoxification. Patient became upset and stated that she would kill herself if she was sent home. Patient denies any other medical concerns or complaints. Denies any recent fevers, illnesses, chest pain or shortness of breath. Pain Scale: 0 - Related Data Home Medications Medication Instructions Recorded Confirmed Vilazodone HCl [Viibryd] 40 mg PO DAILY 06/20/18 06/20/18 raNITIdine HCl [Zantac] 150 mg PO BID 06/20/18 06/20/18 Previous Rx's Medication Instructions Recorded Folic Acid 1 mg PO DAILY tablet 06/26/18 Thiamine (B-1) [Vitamin B-1] 100 mg PO DAILY tablet 06/26/18 Vitamin B Complex/Vit C/Vit E 1 each PO DAILY tablet 06/26/18 [Stresstab] Allergies Allergy/AdvReac Type Severity Reaction Status Date / Time metoclopramide [From Reglan] Allergy Swelling Verified 06/20/18 16:10 of Lip/Tongue/Throat codeine AdvReac Gastrointestinal Verified 06/20/18 16:10 Upset topiramate [From Topamax] AdvReac See Verified 06/20/18 16:10 Comments All systems ED: reviewed and negative except as stated. Constitutional: Denies: fever, chills, weakness Eyes: Reports: as per HPI ENT ED: Reports: as per HPI Cardiovascular: Denies: chest pain, palpitations, dyspnea on exertion Respiratory: Denies: cough, dyspnea, wheezes Gastrointestinal: Denies: abdominal pain Genitourinary: Reports: as per HPI Musculoskeletal: Reports: as per HPI Integumentary: Reports: as per HPI Neurological: Denies: weakness, numbness, paresthesias Psychiatric: Reports: suicidal thoughts Endocrine: Reports: as per HPI Hematological/Lymphatic: Reports: as per HPI Allergic/Immunologic: Reports: as per HPI Past Medical History - Past Medical History Attestation: Yes The following information was validated with the patient. Medical history: Reports: non-contributory Surgical history: Reports: cholecystectomy Psychiatric history: Reports: depression - Social History Smoking Status: Never smoker Smokeless Tobacco Status: No Alcohol use: Reports: heavy, recent Drug use: Reports: none Physical Exam - General Limitations: other (Intoxicated) General appearance: alert, appears intoxicated - Head Head exam: atraumatic, normocephalic, normal inspection - Eye Eye exam: Absent: scleral icterus, conjunctival injection - ENT ENT exam: normal exam, mucous membranes moist - Neck Neck exam: Present: normal inspection, full ROM. Absent: tenderness, meningismus - Chest Chest inspection: Present: normal inspection, symmetric chest wall rise. Abse nt: tenderness, rash - Respiratory Respiratory exam: Present: normal lung sounds bilaterally. Absent: respiratory distress, wheezes - Cardiovascular Cardiovascular exam: Present: normal rhythm, tachycardia, normal heart sounds - Abdominal Exam Abdominal exam: Present: soft, Non-Tender. Absent: distention, guarding, rebound - Extremities Exam Extremities exam: Present: normal inspection, full ROM - Neurological Exam Neurological exam: Present: alert, oriented X3 - Psychiatric Psychiatric exam: Present: depressed, anxious, suicidal ideation - Skin Skin exam: Present: warm, intact Course Course Narrative: 37-year-old female presenting for acute alcohol intoxication. When we expressed to the patient that we can provide her with outpatient resources she stated that she would kill herself of sent home. Due to patient's obvious alcohol intoxication we will perform basic laboratory analysis for medical clearance for psychiatric services. Most likely will be admitted for medical clearance prior to psychiatric evaluation. Patient is alert in the room and hemodynamically st able. Mother at bedside. Patient agrees with this plan. - Reevaluation(s) Reevaluation #1: Patient's alcohol level 439. At this time will plan to admit her for medical clearance prior to psychiatric evaluation. Patient remains alert and hemodynamically stable. Patient agrees with this plan. Patient also states she started to feel little shaky therefore 2 mg of Ativan will be ordered. I spoke with the hospitalist cook mayonnaise Dr. Lau who agrees to accept the patient at this time. Vital Signs Temperature 98.4 F 08/23/18 09:31 Pulse Rate 111 08/23/18 09:31 Respiratory Rate 20 08/23/18 09:31 Blood Pressure 125/95 08/23/18 09:31 O2 Sat by Pulse Oximetry 98 08/23/18 09:31 Temperature 98.4 F 08/23/18 09:40 Pulse Rate 111 08/23/18 09:40 Respiratory Rate 20 08/23/18 09:40 Blood Pressure 125/95 08/23/18 09:40 O2 Sat by Pulse Oximetry 98 08/23/18 09:40 Oxygen Delivery Oxygen Delivery Room Air Medical Decision Making - Lab Data Result diagrams: 08/23/18 10:02 08/23/18 10:02 Lab Results 08/23/18 08/23/18 08/23/18 Range/Units 10:02 10:02 10:14 WBC 5.8 (4.3-11.1) K/mcL RBC 4.59 (3.82-4.97) M/mcL Hgb 15.0 (11.5-15.4) g/dL Hct 43.9 (35.3-44.9) % MCV 95.6 (83.0-100.0) fL MCH 32.7 (28.0-33.3) pg MCHC 34.2 (31.6-35.5) g/dL RDW 13.8 (11.5-14.5) % Plt Count 194 (140-400) K/mcL MPV 9.1 L (9.4-12.4) fL Immature Gran % 0.2 (0-4) % Seg Neutrophils % 68.9 % Lymphocytes % 22.7 % Monocytes % 7.1 % Eosinophils % 0.2 % Basophils % 0.9 % Neutrophils # 4.0 (1.6-8.9) K/mcL Lymphocytes # 1.3 (0.6-4.6) K/mcL Monocytes # 0.4 (0.0-1.3) K/mcL Eosinophils # 0.0 (0.0-0.6) K/mcL Basophils # 0.1 (0.0-0.2) K/mcL Sodium 140 (136-145) mEq/L Potassium 3.7 (3.5-5.1) mEq/L Chloride 105 (98-107) mEq/L Carbon Dioxide 23 (23-29) mEq/L BUN 8 (6-20) mg/dL Creatinine 0.83 (0.60-1.20) mg/dL Est GFR ( Amer) > 60 (> 60) Est GFR (Non-Af Amer) > 60 (> 60) BUN/Creatinine Ratio 10 (6-26) Glucose 140 H (70-105) mg/dL Calculated Osmolality 291 (280-300) Calcium 8.7 (8.6-10.3) mg/dL Urine Color Yellow (Yellow) Urine Clarity Clear (Clear) Urine pH 6.0 (5.0-8.0) pH Units Ur Specific [place] 1.012 (1.010-1.025) Urine Protein Negative (Neg-Trace) mg/dL Urine Glucose (UA) Normal (Normal) mg/dL Urine Ketones Negative (Negative) mg/dL Urine Blood Negative (Negative) Urine Nitrite Negative (Negative) Urine Bilirubin Negative (Negative) Urine Urobilinogen Normal (Normal) mg/dL Ur Leukocyte Esterase Trace H (Negative) Urine Microscopic RBC 0-3 (0-3) per hpf Urine Microscopic WBC 0-3 (0-3) per hpf Ur Squamous Epith Cells Few (None-Few) per lpf Urine Bacteria None Seen (None-Few) per hpf Hyaline Casts None Seen (None-Few) per lpf Urine Test (Negative) Salicylates < 2.5 L (15.0-30.0) mg/dL Urine Opiates Screen (Cvazcd=379) ng/mL Acetaminophen < 10 L (10-20) mcg/mL Ur Barbiturates Screen (Mpdboz=074) ng/mL Ur Phencyclidine Scrn (Cutoff=25) ng/mL Ur Amphetamines Screen (Trzdvx=6167) ng/mL U Benzodiazepines Scrn (Xkittf=816) ng/mL Urine Cocaine Screen (Cutoff= 300) ng/mL U Marijuana (THC) Screen (Cutoff = 50) ng/mL Ur Drug Screen Interp Ethyl Alcohol 439 H (Less than 10) mg/dL 08/23/18 08/23/18 Range/Units 10:14 10:14 WBC (4.3-11.1) K/mcL RBC (3.82-4.97) M/mcL Hgb (11.5-15.4) g/dL Hct (35.3-44.9) % MCV (83.0-100.0) fL MCH (28.0-33.3) pg MCHC (31.6-35.5) g/dL RDW (11.5-14.5) % Plt Count (140-400) K/mcL MPV (9.4-12.4) fL Immature Gran % (0-4) % Seg Neutrophils % % Lymphocytes % % Monocytes % % Eosinophils % % Basophils % % Neutrophils # (1.6-8.9) K/mcL Lymphocytes # (0.6-4.6) K/mcL Monocytes # (0.0-1.3) K/mcL Eosinophils # (0.0-0.6) K/mcL Basophils # (0.0-0.2) K/mcL Sodium (136-145) mEq/L Potassium (3.5-5.1) mEq/L Chloride (98-107) mEq/L Carbon Dioxide (23-29) mEq/L BUN (6-20) mg/dL Creatinine (0.60-1.20) mg/dL Est GFR ( Amer) (> 60) Est GFR (Non-Af Amer) (> 60) BUN/Creatinine Ratio (6-26) Glucose (70-105) mg/dL Calculated Osmolality (280-300) Calcium (8.6-10.3) mg/dL Urine Color (Yellow) Urine Clarity (Clear) Urine pH (5.0-8.0) pH Units Ur Specific [place] (1.010-1.025) Urine Protein (Neg-Trace) mg/dL Urine Glucose (UA) (Normal) mg/dL Urine Ketones (Negative) mg/dL Urine Blood (Negative) Urine Nitrite (Negative) Urine Bilirubin (Negative) Urine Urobilinogen (Normal) mg/dL Ur Leukocyte Esterase (Negative) Urine Microscopic RBC (0-3) per hpf Urine Microscopic WBC (0-3) per hpf Ur Squamous Epith Cells (None-Few) per lpf Urine Bacteria (None-Few) per hpf Hyaline Casts (None-Few) per lpf Urine Test Negative (Negative) Salicylates (15.0-30.0) mg/dL Urine Opiates Screen Negative (Xwsfar=531) ng/mL Acetaminophen (10-20) mcg/mL Ur Barbiturates Screen Negative (Wpzqle=663) ng/mL Ur Phencyclidine Scrn Negative (Cutoff=25) ng/mL Ur Amphetamines Screen Negative (Lyjozj=3748) ng/mL U Benzodiazepines Scrn Negative (Eyqhjf=544) ng/mL Urine Cocaine Screen Negative (Cutoff= 300) ng/mL U Marijuana (THC) Screen Negative (Cutoff = 50) ng/mL Ur Drug Screen Interp See Below Ethyl Alcohol (Less than 10) mg/dL
--- NOTE | 2018-08-23 09:53 | Emergency Department Note ---
Disposition Clinical Impression: Alcohol dependence Acute alcohol intoxication Qualifiers: Complication of substance-induced condition: uncomplicated Qualified Code(s): F10.929 - Alcohol use, unspecified with intoxication, unspecified Disposition: Home, Self-Care Referrals: NONE,PCP [Primary Care Provider] - General Adult HPI - General Chief complaint: ED Alcohol Abuse Stated complaint: "withdrawals from alcohol,wants help" Time Seen by Provider: 08/23/18 09:34 Source: patient, family Limitations: other Nursing Notes Reviewed: Yes Vital Signs Reviewed: Yes - History of Present Illness HPI Narrative: ED ATTESTATION NOTE: I examined this patient and my medical decision-making was reviewed with the Resident Physician/[employer]QA SPECIALIST/PA/Student. I have personally performed a face to face evaluation on this patient & I agree with the documented findings, disposition and treatment plan as described except to the extent set forth below. Patient was seen with emergency medicine resident Leticia Carl please see copy of her note for details of this encounter Briefly: 47-year-old female history of chronic alcohol dependency presents acutely alcohol intoxicated tried glass of vodka half hour prior to arrival she complains of withdrawal from alcohol but the patient is clearly not withdrawal she is intoxicated. Patient has some upper bedside was able cooperate and clarify some of her history. Patient says she is interested in detoxification. We will provide resources. There is no need for any imaging or laboratory studies at this point. Patient ready has a [facility] that she follows up with and is being cared for by them. Discharge home with follow-up with outpatient substance abuse detoxication center such as [facility] with resources locally. discharge disposition pending Pain Scale: 0 - Related Data Home Medications Medication Instructions Recorded Confirmed Vilazodone HCl [Viibryd] 40 mg PO DAILY 06/20/18 06/20/18 raNITIdine HCl [Zantac] 150 mg PO BID 06/20/18 06/20/18 Previous Rx's Medication Instructions Recorded Folic Acid 1 mg PO DAILY tablet 06/26/18 Thiamine (B-1) [Vitamin B-1] 100 mg PO DAILY tablet 06/26/18 Vitamin B Complex/Vit C/Vit E 1 each PO DAILY tablet 06/26/18 [Stresstab] Allergies Allergy/AdvReac Type Severity Reaction Status Date / Time metoclopramide [From Reglan] Allergy Swelling Verified 06/20/18 16:10 of Lip/Tongue/Throat codeine AdvReac Gastrointestinal Verified 06/20/18 16:10 Upset topiramate [From Topamax] AdvReac See Verified 06/20/18 16:10 Comments Past Medical History - Past Medical History Medical history: Reports: non-contributory Surgical history: Reports: cholecystectomy Psychiatric history: Reports: depression - Social History Smoking Status: Never smoker Smokeless Tobacco Status: No Alcohol use: Reports: heavy, recent Drug use: Reports: none Physical Exam - General Limitations: other General appearance: alert, appears intoxicated Course Vital Signs Temperature 98.4 F 08/23/18 09:31 Pulse Rate 111 08/23/18 09:31 Respiratory Rate 20 08/23/18 09:31 Blood Pressure 125/95 08/23/18 09:31 O2 Sat by Pulse Oximetry 98 08/23/18 09:31 Temperature 98.4 F 08/23/18 09:40 Pulse Rate 111 08/23/18 09:40 Respiratory Rate 20 08/23/18 09:40 Blood Pressure 125/95 08/23/18 09:40 O2 Sat by Pulse Oximetry 98 08/23/18 09:40 Oxygen Delivery Oxygen Delivery Room Air
[2018-08-23 10:20] LABS: Basophils # 0.1 K/mcL (0.0-0.2); Basophils % 0.9 %; Eosinophils % 0.2 %; Hematocrit 43.9 % (35.3-44.9); Immature Granulocytes % 0.2 % (0-4); Lymphocytes # 1.3 K/mcL (0.6-4.6); Lymphocytes % 22.7 %; Mean Corpuscular HGB Conc 34.2 g/dL (31.6-35.5); Mean Corpuscular Hemoglobin 32.7 pg (28.0-33.3); Mean Corpuscular Volume 95.6 fL (83.0-100.0); Mean Platelet Volume 9.1 fL (9.4-12.4); Monocytes # 0.4 K/mcL (0.0-1.3); Monocytes % 7.1 %; Platelet Count 194 K/mcL (140-400); Red Blood Count 4.59 M/mcL (3.82-4.97); Red Cell Distribution Width 13.8 % (11.5-14.5); Segmented Neutrophils % 68.9 %
[2018-08-23 10:32] LABS: Bilirubin,Urine Negative (Negative); Blood,Urine Negative (Negative); Clarity,Urine Clear (Clear); Color,Urine Yellow (Yellow); Glucose,Urine (UA) Normal (Normal); Ketones,Urine Negative (Negative); Leukocyte Esterase,Urine Trace (Negative); Nitrite,Urine Negative (Negative); Protein,Urine Negative (Neg-Trace); Specific Gravity,Urine 1.012 (1.010-1.025); Urobilinogen,Urine Normal (Normal)
[2018-08-23 10:37] LABS: Bacteria,Urine None Seen per hpf (None-Few); Hyaline Casts,Urine None Seen per lpf (None-Few); RBC,Urine 0-3 per hpf (0-3); Squamous Epithelial Cell,Urine Few per lpf (None-Few); WBC,Urine 0-3 per hpf (0-3)
[2018-08-23 10:40] LABS: Acetaminophen < 10 mcg/mL (10-20); BUN/Creatinine Ratio 10 (6-26); Blood Urea Nitrogen 8 mg/dL (6-20); Calcium 8.7 mg/dL (8.6-10.3); Carbon Dioxide 23 mEq/L (23-29); Chloride 105 mEq/L (98-107); Ethanol 439 mg/dL (Less than 10); Glucose 140 mg/dL (70-105); Osmolality,Calculated 291 (280-300); Potassium 3.7 mEq/L (3.5-5.1); Salicylate < 2.5 mg/dL (15.0-30.0); Sodium 140 mEq/L (136-145); eGFR For Non-African Americans > 60 (> 60)
[2018-08-23 10:49] LABS: Amphetamine Screen,Urine Negative ng/mL (Cutoff=1000); Barbiturate Screen,Urine Negative ng/mL (Cutoff=200); Benzodiazepines Screen,Urine Negative ng/mL (Cutoff=200); Cannabinoid Screen,Urine Negative ng/mL (Cutoff = 50); Cocaine Screen,Urine Negative ng/mL (Cutoff= 300); Opiate Screen,Urine Negative ng/mL (Cutoff=300); Phencyclidine Screen,Urine Negative ng/mL (Cutoff=25)
[2018-08-23] MEDS ORDERED: *HR* LORazepam 2 MG/ML VIAL IM ONE (11:02)
[2018-08-23] MEDS ORDERED: *HR* LORazepam 2 MG/ML VIAL IVP PRN (11:11)
[2018-08-23] MEDS ORDERED: *HR* Promethazine 25 MG/ML VIAL IVP PRN (11:11)
[2018-08-23] MEDS ORDERED: Naloxone 0.4 MG/ML INJ IVP PRN (11:11)
--- NOTE | 2018-08-23 11:53 | Internal Med History&Physical ---
Date of Encounter: 08/23/18 Time of Encounter: 11:42 Internal Medicine - H&P: HPI Chief complaint: Alcohol intoxication and suicidal ideation Admitted From: Home Plans for Post Hospital Care: Home History of present illness: Ms. Benitez is a 37 year old female with no prior medical history with the exception of chronic alcohol abuse. She presents to the ED for chief complaint of "needing help to detox ". The patient drinks at a minimum 2 pints of vodka daily and at 3-4 pints daily. She reports that her last drink was this morning approximately 1/2 pint of vodka. She has been drinking in excess for greater th an a year and a half and has had recent admissions for alcohol withdrawal. She states that lately she has been having suicidal ideation. While in the ED she does appear to be intoxicated. EtOH level 439. She was not found to be in withdrawal while in the ED instead she is intoxicated and was offered discharge home. However, the patient states that if she were to discharge home she may kill herself. She is being admitted for observation with suicidal ideation. Additionally, she will need to be monitored for signs and symptoms of alcohol withdrawal. Past Med Surg Social Fam HX - Past Medical History Medical history: non-contributory Additional medical history: ETOH abuse Psychiatric history: depression - Past Surgical History Surgical History: cholecystectomy Additional surgical history: Back sx, Knee sx, elbow sx - Social History Smoking Status: Never smoker Smokeless Tobacco Status: No Alcohol use: heavy, recent Drug use: none - Family History Father Living Status: Still Living Hx Family Cancer: Yes Mother Living Status: Still Living Hx Family Cancer: Yes Hx Family Endocrine Disorder: Yes (hypoglycemic) Internal Medicine - H&P: Meds Vilazodone HCl [Viibryd] 40 mg PO DAILY 06/20/18 [History] raNITIdine HCl [Zantac] 150 mg PO BID 06/20/18 [History] Folic Acid 1 mg PO DAILY tablet 06/26/18 [Rx] Thiamine (B-1) [Vitamin B-1] 100 mg PO DAILY tablet 06/26/18 [Rx] Vitamin B Complex/Vit C/Vit E [Stresstab] 1 each PO DAILY tablet 06/26/18 [Rx] Allergy/AdvReac Type Severity Reaction Status Date / Time metoclopramide [From Reglan] Allergy Swelling Verified 06/20/18 16:10 of Lip/Tongue/Throat codeine AdvReac Gastrointestinal Verified 06/20/18 16:10 Upset topiramate [From Topamax] AdvReac See Verified 06/20/18 16:10 Comments All Systems PM: A 10-system review of systems was performed and is negative for pertinent findings except as documented above in the HPI. Review of systems: REVIEW OF SYSTEMS GENERAL: Negative for any nausea, vomiting, fevers, chills, or weight loss. Alcohol intoxication NEUROLOGIC: Negative for any blurry vision, blind spots, double vision, facial asymmetry, dysphagia, dysarthria, hemiparesis, hemisensory deficits, vertigo, ataxia. Denies any auditory/visual hallucinations and/or tremors HEENT: Negative for any head trauma, neck trauma, neck stiffness, photophobia, phonophobia, sinusitis, rhinitis. CARDIAC: Negative for any chest pain PULMONARY: Negative for any shortness of breath GASTROINTESTINAL: Negative for any abdominal pain, nausea, vomiting, bright red blood per rectum, melena. GENITOURINARY: Negative for any dysuria, hematuria, incontinence. INTEGUMENTARY: Negative for any rashes, cuts, insect bites. PSYCHIATRY: Suicidal ideation threatening to take her life - Constitutional Vitals: Temp Pulse Resp BP Pulse Ox 98.4 F 111 20 125/95 98 08/23/18 09:40 08/23/18 09:40 08/23/18 09:40 08/23/18 09:40 08/23/18 09:40 General appearance: Present: A&O X 3 Exam: PHYSICAL EXAMINATION: GENERAL: The patient is a 37-year-old female who appears to be intoxicated and is in mild distress. She is a and O 3. HEENT: Head is normocephalic and atraumatic. PERRLA LUNGS: Clear to auscultation B/L AP and L. HEART: Regular rate and rhythm, S1, S2 without murmur. ABDOMEN: Soft, nontender, and nondistended. Positive bowel sounds. No hepatosplenomegaly was noted. NEUROLOGIC: Without facial droop or slurred speech PSYCHIATRIC: She appears to be anxious and is reporting suicidal ideation SKIN: No ulceration or induration present. Internal Med - H&P Results - Labs CBC & Chem 7: 08/23/18 10:02 08/23/18 10:02 Labs: Short CBC 08/23/18 Range/Units 10:02 WBC 5.8 (4.3-11.1) K/mcL Hgb 15.0 (11.5-15.4) g/dL Hct 43.9 (35.3-44.9) % Plt Count 194 (140-400) K/mcL Neutrophils # 4.0 (1.6-8.9) K/mcL BMP 08/23/18 10:02 Sodium 140 Potassium 3.7 Chloride 105 Carbon Dioxide 23 BUN 8 Creatinine 0.83 Glucose 140 H Calcium 8.7 Urine 08/23/18 Range/Units 10:14 Urine Color Yellow (Yellow) Urine Clarity Clear (Clear) Urine pH 6.0 (5.0-8.0) pH Units Ur Specific [place] 1.012 (1.010-1.025) Urine Protein Negative (Neg-Trace) mg/dL Urine Glucose (UA) Normal (Normal) mg/dL - Assessment and plan (1) Acute alcohol intoxication Current Visit: Yes Status: Acute Assessment and plan: Long-standing history of alcohol abuse Presents to ED today with alcohol intoxication with alcohol 439 Reporting that she wishes to quit drinking Also reporting suicidal ideation She was offered discharge home from the ED however she reports if she were to discharge she is afraid she would take her own life She is being admitted for psychiatric evaluation; consult psychiatry Start [facility] protocol with Ativan as well as [facility] office services manager to see in consultation to discuss discharge planning for potential inpatient rehabilitation One-to-one sitter Suicide precautions Qualifiers: Complication of substance-induced condition: uncomplicated Qualified Code(s): F10.929 - Alcohol use, unspecified with intoxication, unspecified (2) Suicidal ideation Current Visit: Yes Status: Acute Assessment and plan: as above (3) Anxiety Current Visit: No Status: Acute Assessment and plan: anxious treat with ativan PRN (4) Depression Current Visit: No Status: Acute Assessment and plan: continue home meds when confirmed Qualifiers: Depression Type: unspecified Qualified Code(s): F32.9 - Major depressive disorder, single episode, unspecified (5) DVT prophylaxis Current Visit: No Status: Acute Assessment and plan: Lovenox - Time Spent With Patient Total time spent is greater than 50% in coordination of care (as documented) at patient's floor/unit and/or counseling patient: less than 15 minutes
[2018-08-23] MEDS: *HR* LORazepam 2 MG/ML VIAL IVP PRN ×7 (13:24→23:52)
--- NOTE | 2018-08-23 16:43 | Consult Note ---
Date of Encounter: 08/23/18 Time of Encounter: 16:15 Assessment & Recommendation (1) Alcohol dependence with withdrawal, unspecified Current visit: Yes Status: Acute Qualifiers: Complication of substance-induced condition: with unspecified complication Qualified Code(s): F10.239 - Alcohol dependence with withdrawal, unspecified (2) Anxiety about health Current visit: Yes Status: Acute History of Present Illness Patient: new to practice Requesting Physician: Amador Lau MD Reason for consult: I was in withdrawal History of present illness: Ms. Benitez is a 37 year old female The patient presented with very high alcohol level. The patient is also on clonazepam 2 mg prescribed for anxiety and depression. She reports that she began having trouble with alcohol recently. The patient reports that she drank excessively and that this is the reason for her high alcohol level but she is having some withdrawal. At this point the patient recognizes that she has problems with alcohol she is received an O MVI she is placed on no contact order. She is now seeking treatment. She hopes to get a permit to drive to work. The patient is employed in the agricultural field. She notes that excessive alcohol has been a problem for the past few months. She notes that she thought of suicide during period of alcohol withdrawal. She did not specify a method she denies this now but notes that she is being treated for anxiety and depression. Further contact was made with the patient's hospitalist. He identifies that the patient is at risk for alcohol withdrawal and may require more intensive treatment than can be offered on one day. While the patient was accepting of voluntary admission to 1 a war going on a waiting list for alcohol reabilatation the patient is in need of alcohol deto xification at this time. Given the patient's scenario she should remain on the medical floor. She should continue to have a sitter. If the patient's clinical status improved since she is no longer at risk for alcohol withdrawal then we can consider voluntary admission to 1 a period the patient can also be considered for an outpatient alcohol rehabilitation program or a residential rehabilitation program once the risk of withdrawal has passed. The patient was seen and relatively clear and cooperative in conversation. She did not evidence significant impairment consciousness or psychosis. CC: Amador Lau MD Past Med Surg Social Fam HX - Past Medical History Medical history: non-contributory - Past Psychiatric History Psychiatric history: Reports: anxiety, depression - Past Surgical History Surgical History: cholecystectomy - Social History Smoking Status: Never smoker Smokeless Tobacco Status: No Alcohol use: heavy, recent Drug use: none Occupational status: employed Current living situation: Home - Independent Activity Level: Independent ambulation Recent Out of Country Travel Within the Last 8 Weeks: No Exposure or Possible Exposure to Illness During Travel: No - Family History Father Living Status: Still Living Hx Family Cancer: Yes Mother Living Status: Still Living Hx Family Cancer: Yes Hx Family Endocrine Disorder: Yes (hypoglycemic) Medications & Allergies Vilazodone HCl [Viibryd] 40 mg PO DAILY 06/20/18 [History] raNITIdine HCl [Zantac] 150 mg PO BID 06/20/18 [History] Folic Acid 1 mg PO DAILY tablet 06/26/18 [Rx] Thiamine (B-1) [Vitamin B-1] 100 mg PO DAILY tablet 06/26/18 [Rx] Vitamin B Complex/Vit C/Vit E [Stresstab] 1 each PO DAILY tablet 06/26/18 [Rx] Vitamin E 1,000 unit PO DAILY 08/23/18 [History] clonazePAM [Clonazepam] 1 mg PO TID PRN 08/23/18 [History] traZODone [TraZODone] 50 - 100 mg PO HS 08/23/18 [History] Allergy/AdvReac Type Severity Reaction Status Date / Time metoclopramide [From Reglan] Allergy Swelling Verified 08/23/18 12:00 of Lip/Tongue/Throat codeine AdvReac Gastrointestinal Verified 08/23/18 12:00 Upset topiramate [From Topamax] AdvReac See Verified 08/23/18 12:00 Comments Review of Systems Psychiatric: Reports: depression, anxiety Psychiatry Exam - Constitutional Vitals: Temp Pulse Resp BP Pulse Ox 98.2 F 100 14 155/88 98 08/23/18 12:56 08/23/18 12:56 08/23/18 12:56 08/23/18 12:56 08/23/18 12:56 General appearance: age & developmentally appropriate, well-groomed, well- nourished - Musculoskeletal Gait: normal Station: relaxed Strength & Tone: normal for patient - Psychiatric Patient Orientation: Yes Person, Yes Time, Yes Place Level of alertness: Alert Behavior: calm, cooperative Psychomotor activity: Normal Eye Contact: Maintains Eye Contact Mood Description: Anxious Affect description: congruent with mood, dysphoric Speech Volume: Normal Speech pattern: normal rate, normal rhythm, normal tone, fluent, spontaneous Language & Vocabulary: consistent with education Thought Process: Linear, Goal Oriented Thought Content: No Suicidal ideation, No Homicidal ideation, No Overt delusions Perceptual Disturbances: No Auditory hallucinations, No Visual hallucinations Attention Span Ability: Capable of Focused Attention Memory Description: Grossly Intact Patient Reliability: Reliable Historian Fund of knowledge: Yes abstraction ability, Yes aware of current events Intelligence Estimate: Average Judgment: Limited Insight: Minimal Results - Drug Levels and Toxicology Drug Levels and Toxicology: Drug Levels and Toxicity 08/23/18 08/23/18 10:02 10:14 Urine Opiates Screen Negative Acetaminophen < 10 L Ur Barbiturates Screen Negative Ur Phencyclidine Scrn Negative Ur Amphetamines Screen Negative U Benzodiazepines Scrn Negative Urine Cocaine Screen Negative U Marijuana (THC) Screen Negative Ethyl Alcohol 439 H - Labs Labs: Laboratory Last Values WBC 5.8 K/mcL (4.3-11.1) 08/23/18 10:02 RBC 4.59 M/mcL (3.82-4.97) 08/23/18 10:02 Hgb 15.0 g/dL (11.5-15.4) 08/23/18 10:02 Hct 43.9 % (35.3-44.9) 08/23/18 10:02 MCV 95.6 fL (83.0-100.0) 08/23/18 10:02 MCH 32.7 pg (28.0-33.3) 08/23/18 10:02 MCHC 34.2 g/dL (31.6-35.5) 08/23/18 10:02 RDW 13.8 % (11.5-14.5) 08/23/18 10:02 Plt Count 194 K/mcL (140-400) 08/23/18 10:02 MPV 9.1 fL (9.4-12.4) L 08/23/18 10:02 Immature Gran % 0.2 % (0-4) 08/23/18 10:02 Seg Neutrophils % 68.9 % 08/23/18 10:02 Lymphocytes % 22.7 % 08/23/18 10:02 Monocytes % 7.1 % 08/23/18 10:02 Eosinophils % 0.2 % 08/23/18 10:02 Basophils % 0.9 % 08/23/18 10:02 Neutrophils # 4.0 K/mcL (1.6-8.9) 08/23/18 10:02 Lymphocytes # 1.3 K/mcL (0.6-4.6) 08/23/18 10:02 Monocytes # 0.4 K/mcL (0.0-1.3) 08/23/18 10:02 Eosinophils # 0.0 K/mcL (0.0-0.6) 08/23/18 10:02 Basophils # 0.1 K/mcL (0.0-0.2) 08/23/18 10:02 Sodium 140 mEq/L (136-145) 08/23/18 10:02 Potassium 3.7 mEq/L (3.5-5.1) 08/23/18 10:02 Chloride 105 mEq/L (98-107) 08/23/18 10:02 Carbon Dioxide 23 mEq/L (23-29) 08/23/18 10:02 BUN 8 mg/dL (6-20) 08/23/18 10:02 Creatinine 0.83 mg/dL (0.60-1.20) 08/23/18 10:02 Est GFR ( Amer) > 60 (> 60) 08/23/18 10:02 Est GFR (Non-Af Amer) > 60 (> 60) 08/23/18 10:02 BUN/Creatinine Ratio 10 (6-26) 08/23/18 10:02 Glucose 140 mg/dL (70-105) H 08/23/18 10:02 Calculated Osmolality 291 (280-300) 08/23/18 10:02 Calcium 8.7 mg/dL (8.6-10.3) 08/23/18 10:02 Urine Color Yellow (Yellow) 08/23/18 10:14 Urine Clarity Clear (Clear) 08/23/18 10:14 Urine pH 6.0 pH Units (5.0-8.0) 08/23/18 10:14 Ur Specific [place] 1.012 (1.010-1.025) 08/23/18 10:14 Urine Protein Negative mg/dL (Neg-Trace) 08/23/18 10:14 Urine Glucose (UA) Normal mg/dL (Normal) 08/23/18 10:14 Urine Ketones Negative mg/dL (Negative) 08/23/18 10:14 Urine Blood Negative (Negative) 08/23/18 10:14 Urine Nitrite Negative (Negative) 08/23/18 10:14 Urine Bilirubin Negative (Negative) 08/23/18 10:14 Urine Urobilinogen Normal mg/dL (Normal) 08/23/18 10:14 Ur Leukocyte Esterase Trace (Negative) H 08/23/18 10:14 Urine Microscopic RBC 0-3 per hpf (0-3) 08/23/18 10:14 Urine Microscopic WBC 0-3 per hpf (0-3) 08/23/18 10:14 Ur Squamous Epith Cells Few per lpf (None-Few) 08/23/18 10:14 Urine Bacteria None Seen per hpf (None-Few) 08/23/18 10:14 Hyaline Casts None Seen per lpf (None-Few) 08/23/18 10:14 Urine Test Negative (Negative) 08/23/18 10:14 Salicylates < 2.5 mg/dL (15.0-30.0) L 08/23/18 10:02 Urine Opiates Screen Negative ng/mL (Vsmqge=815) 08/23/18 10:14 Acetaminophen < 10 mcg/mL (10-20) L 08/23/18 10:02 Ur Barbiturates Screen Negative ng/mL (Pqqzvb=686) 08/23/18 10:14 Ur Phencyclidine Scrn Negative ng/mL (Cutoff=25) 08/23/18 10:14 Ur Amphetamines Screen Negative ng/mL (Ibyytg=9967) 08/23/18 10:14 U Benzodiazepines Scrn Negative ng/mL (Odjema=139) 08/23/18 10:14 Urine Cocaine Screen Negative ng/mL (Cutoff= 300) 08/23/18 10:14 U Marijuana (THC) Screen Negative ng/mL (Cutoff = 50) 08/23/18 10:14 Ur Drug Screen Interp See Below 08/23/18 10:14 Ethyl Alcohol 439 mg/dL (Less than 10) H 08/23/18 10:02 Consult Discharge Plan - Plan Referrals: NONE,PCP [Primary Care Provider] -
[2018-08-23] MEDS: Thiamine (B-1) 100 MG, Folic Acid 1 MG, MVI, adult with vitamin K 10 ML in 0.9 % Sodi... IVPB SCH (17:02)
[2018-08-24] MEDS: *HR* LORazepam 2 MG/ML VIAL IVP PRN ×6 (02:09→23:14)
[2018-08-24] MEDS: *HR* Enoxaparin 40 MG/0.4 ML SYRINGE SQ SCH (05:56)
[2018-08-24] MEDS: Folic Acid 1 MG TABLET PO SCH (08:19)
[2018-08-24] MEDS: Vitamin B Complex/Vit C/Vit E 1 EACH TABLET PO SCH (08:19)
[2018-08-24] MEDS: Thiamine (B-1) 100 MG TABLET PO SCH (08:19)
--- NOTE | 2018-08-24 08:30 | Internal Med Progress Note ---
Hospitalist Progress Note - Encounter Date of Encounter: 08/24/18 Time of Encounter: 08:28 - Subjective Interval History: Admitted with alcohol intoxication. Long-standing history of alcohol abuse. No acute changes overnight. Denies any signs or symptoms of withdrawal at this time. Her only complaint is of agitation which may be some early withdrawal otherwise patient is stable. - Exam Vitals: Temp Pulse Resp BP Pulse Ox 98.3 F 83 14 135/78 97 08/24/18 05:26 08/24/18 05:26 08/24/18 05:26 08/24/18 05:26 08/24/18 05:26 Exam: PHYSICAL EXAMINATION: GENERAL: The patient is a 37-year-old female who appears to be intoxicated and is in mild distress. She is a and O 3. HEENT: Head is normocephalic and atraumatic. PERRLA LUNGS: Clear to auscultation B/L AP and L. HEART: Regular rate and rhythm, S1, S2 without murmur. ABDOMEN: Soft, nontender, and nondistended. Positive bowel sounds. No hepatosplenomegaly was noted. NEUROLOGIC: Without facial droop or slurred speech PSYCHIATRIC: She appears to be anxious and is mildly agitated. Denies any au ditory/visual hallucinations. Admits to SI, denies HI SKIN: No ulceration or induration present. - Assessment and Plan (1) Acute alcohol intoxication Current Visit: Yes Status: Acute Assessment and Plan: Long-standing history of alcohol abuse Presents to ED today with alcohol intoxication with alcohol 439 Reporting that she wishes to quit drinking Also reporting suicidal ideation She was offered discharge home from the ED however she reports if she were to discharge she is afraid she would take her own life She is being admitted for psychiatric evaluation; consult psychiatry Start [facility] protocol with Ativan as well as [facility] media services director to see in consultation to discuss discharge planning for potential inpatient rehabilitation One-to-one sitter Suicide precautions 08/24--currently resting comfortably at bedside. Alert and oriented 3 and clinically stable. She does appear mildly agitated but does not have any other signs or symptoms of withdrawal. Continues to deny any homicidal ideation but does admit to some suicidal ideation. She denies any auditory/visual aquino llucinations. Plan is to continue to monitor for withdrawal and when clinically stable transfer to inpatient rehabilitation facility. Continue plan as stated above. Monitor closely as the patient is a high risk for alcohol withdrawal (2) Suicidal ideation Current Visit: Yes Status: Acute Assessment and Plan: ABOVE (3) Anxiety Current Visit: No Status: Acute Assessment and Plan: Continue anxiolytics (4) Depression Current Visit: No Status: Acute Assessment and Plan: Continue home meds (5) DVT prophylaxis Current Visit: No Status: Acute Assessment and Plan: Lovenox - Time Spent with Patient Total time spent is greater than 50% in coordination of care (as documented) at patient's floor/unit and/or counseling patient: less than 15 minutes Plan of Care Discussed with: patient Internal Medicine: Result - Labs CBC & Chem 7: 08/23/18 10:02 08/23/18 10:02 Labs: Short CBC 08/23/18 Range/Units 10:02 WBC 5.8 (4.3-11.1) K/mcL Hgb 15.0 (11.5-15.4) g/dL Hct 43.9 (35.3-44.9) % Plt Count 194 (140-400) K/mcL Neutrophils # 4.0 (1.6-8.9) K/mcL BMP 08/23/18 10:02 Sodium 140 Potassium 3.7 Chloride 105 Carbon Dioxide 23 BUN 8 Creatinine 0.83 Glucose 140 H Calcium 8.7 Urine 08/23/18 Range/Units 10:14 Urine Color Yellow (Yellow) Urine Clarity Clear (Clear) Urine pH 6.0 (5.0-8.0) pH Units Ur Specific [place] 1.012 (1.010-1.025) Urine Protein Negative (Neg-Trace) mg/dL Urine Glucose (UA) Normal (Normal) mg/dL Consult Discharge Plan - Plan Referrals: NONE,PCP [Primary Care Provider] - (1) Acute alcohol intoxication Qualifiers: Complication of substance-induced condition: uncomplicated Qualified Code(s): F10.929 - Alcohol use, unspecified with intoxication, unspecified (4) Depression Qualifiers: Depression Type: unspecified Qualified Code(s): F32.9 - Major depressive disorder, single episode, unspecified
--- NOTE | 2018-08-24 16:06 | Consult Note ---
Date of Encounter: 08/24/18 Time of Encounter: 15:30 Assessment & Recommendation (1) Alcohol dependence with withdrawal, unspecified Current visit: Yes Status: Acute Qualifiers: Complication of substance-induced condition: with unspecified complication Qualified Code(s): F10.239 - Alcohol dependence with withdrawal, unspecified (2) Anxiety about health Current visit: Yes Status: Acute History of Present Illness Patient: known to practice within the last 3 years Requesting Physician: Amador Lau MD Reason for consult: In withdrawal History of present illness: Ms. Benitez is a 37 year old female Chief complaint: Still having anxiety. History of present illness: The patient has been treated for alcohol withdrawal. This is involved in the [facility] protocol and the patient has required Ativan. The patient has had some variation in mental status but has been generally alert and cooperative and motivated for treatment. CC: Amador Lau MD Past Med Surg Social Fam HX - Past Medical History Medical history: non-contributory - Past Psychiatric History Psychiatric history: Reports: anxiety, depression - Past Surgical History Surgical History: cholecystectomy - Social History Smoking Status: Never smoker Smokeless Tobacco Status: No Alcohol use: heavy, recent Drug use: none Occupational status: employed Current living situation: Home Activity Level: Independent ambulation Recent Out of Country Travel Within the Last 8 Weeks: No Exposure or Possible Exposure to Illness During Travel: No - Family History Father Living Status: Still Living Hx Family Cancer: Yes Mother Living Status: Still Living Hx Family Cancer: Yes Hx Family Endocrine Disorder: Yes (hypoglycemic) Medications & Allergies Vilazodone HCl [Viibryd] 40 mg PO DAILY 06/20/18 [History] raNITIdine HCl [Zantac] 150 mg PO BID 06/20/18 [History] Folic Acid 1 mg PO DAILY tablet 06/26/18 [Rx] Thiamine (B-1) [Vitamin B-1] 100 mg PO DAILY tablet 06/26/18 [Rx] Vitamin B Complex/Vit C/Vit E [Stresstab] 1 each PO DAILY tablet 06/26/18 [Rx] Vitamin E 1,000 unit PO DAILY 08/23/18 [History] clonazePAM [Clonazepam] 1 mg PO TID PRN 08/23/18 [History] traZODone [TraZODone] 50 - 100 mg PO HS 08/23/18 [History] Allergy/AdvReac Type Severity Reaction Status Date / Time metoclopramide [From Reglan] Allergy Swelling Verified 08/23/18 12:00 of Lip/Tongue/Throat codeine AdvReac Gastrointestinal Verified 08/23/18 12:00 Upset topiramate [From Topamax] AdvReac See Verified 08/23/18 12:00 Comments Review of Systems Psychiatric: Reports: depression, anxiety, mood swings Psychiatry Exam - Constitutional Vitals: Temp Pulse Resp BP Pulse Ox 98.9 F 74 16 134/84 100 08/24/18 10:42 08/24/18 10:42 08/24/18 10:42 08/24/18 10:42 08/24/18 10:42 General appearance: age & developmentally appropriate, well-groomed, well- nourished - Musculoskeletal Gait: normal Station: shaky Strength & Tone: normal for patient - Psychiatric Patient Orientation: Yes Person, Yes Time, Yes Place Level of alertness: Alert Behavior: nervous, anxious, tearful Eye Contact: Minimal Contact Mood Description: Anxious Affect description: dysphoric, anxious Speech Volume: Normal Speech pattern: normal rate Language & Vocabulary: consistent with education Thought Process: Logical, Linear Thought Content: Yes Intact Attention Span Ability: Capable of Sustained Attention Patient Reliability: Questionable Historian Judgment: Limited Insight: Minimal Results - Labs Labs: Laboratory Last Values WBC 5.8 K/mcL (4.3-11.1) 08/23/18 10:02 RBC 4.59 M/mcL (3.82-4.97) 08/23/18 10:02 Hgb 15.0 g/dL (11.5-15.4) 08/23/18 10:02 Hct 43.9 % (35.3-44.9) 08/23/18 10:02 MCV 95.6 fL (83.0-100.0) 08/23/18 10:02 MCH 32.7 pg (28.0-33.3) 08/23/18 10:02 MCHC 34.2 g/dL (31.6-35.5) 08/23/18 10:02 RDW 13.8 % (11.5-14.5) 08/23/18 10:02 Plt Count 194 K/mcL (140-400) 08/23/18 10:02 MPV 9.1 fL (9.4-12.4) L 08/23/18 10:02 Immature Gran % 0.2 % (0-4) 08/23/18 10:02 Seg Neutrophils % 68.9 % 08/23/18 10:02 Lymphocytes % 22.7 % 08/23/18 10:02 Monocytes % 7.1 % 08/23/18 10:02 Eosinophils % 0.2 % 08/23/18 10:02 Basophils % 0.9 % 08/23/18 10:02 Neutrophils # 4.0 K/mcL (1.6-8.9) 08/23/18 10:02 Lymphocytes # 1.3 K/mcL (0.6-4.6) 08/23/18 10:02 Monocytes # 0.4 K/mcL (0.0-1.3) 08/23/18 10:02 Eosinophils # 0.0 K/mcL (0.0-0.6) 08/23/18 10:02 Basophils # 0.1 K/mcL (0.0-0.2) 08/23/18 10:02 Sodium 140 mEq/L (136-145) 08/23/18 10:02 Potassium 3.7 mEq/L (3.5-5.1) 08/23/18 10:02 Chloride 105 mEq/L (98-107) 08/23/18 10:02 Carbon Dioxide 23 mEq/L (23-29) 08/23/18 10:02 BUN 8 mg/dL (6-20) 08/23/18 10:02 Creatinine 0.83 mg/dL (0.60-1.20) 08/23/18 10:02 Est GFR ( Amer) > 60 (> 60) 08/23/18 10:02 Est GFR (Non-Af Amer) > 60 (> 60) 08/23/18 10:02 BUN/Creatinine Ratio 10 (6-26) 08/23/18 10:02 Glucose 140 mg/dL (70-105) H 08/23/18 10:02 Calculated Osmolality 291 (280-300) 08/23/18 10:02 Calcium 8.7 mg/dL (8.6-10.3) 08/23/18 10:02 Urine Color Yellow (Yellow) 08/23/18 10:14 Urine Clarity Clear (Clear) 08/23/18 10:14 Urine pH 6.0 pH Units (5.0-8.0) 08/23/18 10:14 Ur Specific [place] 1.012 (1.010-1.025) 08/23/18 10:14 Urine Protein Negative mg/dL (Neg-Trace) 08/23/18 10:14 Urine Glucose (UA) Normal mg/dL (Normal) 08/23/18 10:14 Urine Ketones Negative mg/dL (Negative) 08/23/18 10:14 Urine Blood Negative (Negative) 08/23/18 10:14 Urine Nitrite Negative (Negative) 08/23/18 10:14 Urine Bilirubin Negative (Negative) 08/23/18 10:14 Urine Urobilinogen Normal mg/dL (Normal) 08/23/18 10:14 Ur Leukocyte Esterase Trace (Negative) H 08/23/18 10:14 Urine Microscopic RBC 0-3 per hpf (0-3) 08/23/18 10:14 Urine Microscopic WBC 0-3 per hpf (0-3) 08/23/18 10:14 Ur Squamous Epith Cells Few per lpf (None-Few) 08/23/18 10:14 Urine Bacteria None Seen per hpf (None-Few) 08/23/18 10:14 Hyaline Casts None Seen per lpf (None-Few) 08/23/18 10:14 Urine Test Negative (Negative) 08/23/18 10:14 Salicylates < 2.5 mg/dL (15.0-30.0) L 08/23/18 10:02 Urine Opiates Screen Negative ng/mL (Mjmpwy=626) 08/23/18 10:14 Acetaminophen < 10 mcg/mL (10-20) L 08/23/18 10:02 Ur Barbiturates Screen Negative ng/mL (Xxwvth=705) 08/23/18 10:14 Ur Phencyclidine Scrn Negative ng/mL (Cutoff=25) 08/23/18 10:14 Ur Amphetamines Screen Negative ng/mL (Dcnqya=3010) 08/23/18 10:14 U Benzodiazepines Scrn Negative ng/mL (Pzmsif=478) 08/23/18 10:14 Urine Cocaine Screen Negative ng/mL (Cutoff= 300) 08/23/18 10:14 U Marijuana (THC) Screen Negative ng/mL (Cutoff = 50) 08/23/18 10:14 Ur Drug Screen Interp See Below 08/23/18 10:14 Ethyl Alcohol 439 mg/dL (Less than 10) H 08/23/18 10:02 Consult Discharge Plan - Plan Referrals: NONE,PCP [Primary Care Provider] -
[2018-08-24] MEDS: Thiamine (B-1) 100 MG, Folic Acid 1 MG, MVI, adult with vitamin K 10 ML in 0.9 % Sodi... IVPB SCH (17:36)
[2018-08-25] MEDS: *HR* Enoxaparin 40 MG/0.4 ML SYRINGE SQ SCH (06:05)
[2018-08-25] MEDS: *HR* LORazepam 2 MG/ML VIAL IVP PRN ×6 (06:50→19:02)
[2018-08-25] MEDS: Folic Acid 1 MG TABLET PO SCH (08:41)
[2018-08-25] MEDS: Thiamine (B-1) 100 MG TABLET PO SCH (08:41)
[2018-08-25] MEDS: Vitamin B Complex/Vit C/Vit E 1 EACH TABLET PO SCH (08:41)
--- NOTE | 2018-08-25 08:43 | Internal Med Progress Note ---
Hospitalist Progress Note - Encounter Date of Encounter: 08/25/18 Time of Encounter: 08:42 - Subjective Interval History: Admitted with alcohol intoxication. Long-standing history of alcohol abuse. Overnight, patient starting to display some withdrawal symptoms including increased agitation and mild tremors. Denies any auditory or visual hallucinations. At this time denying any SI/HI - Exam Vitals: Temp Pulse Resp BP Pulse Ox 98.5 F 79 18 131/76 100 08/25/18 08:38 08/25/18 08:38 08/25/18 08:38 08/25/18 08:38 08/25/18 08:38 Exam: PHYSICAL EXAMINATION: GENERAL: The patient is a 37-year-old female who appears to be intoxicated and is in mild distress. She is a and O 3. HEENT: Head is normocephalic and atraumatic. PERRLA LUNGS: Clear to auscultation B/L AP and L. HEART: Regular rate and rhythm, S1, S2 without murmur. ABDOMEN: Soft, nontender, and nondistended. Positive bowel sounds. No hepatosplenomegaly was noted. NEUROLOGIC: Without facial droop or slurred speech. Mild bilateral upper extremity tremors noted PSYCHIATRIC: She appears to be anxious and agitated. Denies any auditory/visual hallucinations. Denies SI, denies HI SKIN: No ulceration or induration present. - Assessment and Plan (1) Acute alcohol intoxication Current Visit: Yes Status: Acute Assessment and Plan: Long-standing history of alcohol abuse Presents to ED today with alcohol intoxication with alcohol 439 Reporting that she wishes to quit drinking Also reporting suicidal ideation She was offered discharge home from the ED however she reports if she were to discharge she is afraid she would take her own life She is being admitted for psychiatric evaluation; consult psychiatry Start [facility] protocol with Ativan as well as banana bag guest services lead to see in consultation to discuss discharge planning for potential inpatient rehabilitation One-to-one sitter Suicide precautions 08/25--clinically, patient remained stable. Overnight she appears to have developed some withdrawal which is expected. She is not growth in 24 hours since her last alcoholic beverage. She is displaying bilateral upper extremity fine tremors as well as increased agitation. There is also reports of some borderline aggression. The patient is still requesting voluntary inpatient treatment for alcohol abuse. guest services lead team seeing in consultation and plan is for discharge inpatient rehabilitation facility. Psychiatry following consultation, thank you, appreciate recommendations. Continue to treat with CIWA protocol with Ativan. During her last admission she experienced withdrawal and required high doses of benzodiazepines. Monitor closely as the patient may benefit from this during this admission as well. Should she begin to experience severe withdrawal we will consider transferring to a stepdown unit and starting the patient on a Precedex drip (2) Suicidal ideation Current Visit: Yes Status: Acute Assessment and Plan: Reports suicidal ideation while in the ED on this admission. ED physician florentino slipped the patient. Psychiatry has been consulted for further evaluation. At this time she is currently denying any suicidal ideation. (3) Anxiety Current Visit: No Status: Acute Assessment and Plan: Continue anxiolytics (4) Depression Current Visit: No Status: Acute Assessment and Plan: Continue home meds (5) DVT prophylaxis Current Visit: No Status: Acute Assessment and Plan: Lovenox - Time Spent with Patient Total time spent is greater than 50% in coordination of care (as documented) at patient's floor/unit and/or counseling patient: less than 15 minutes Plan of Care Discussed with: patient Internal Medicine: Result - Labs CBC & Chem 7: 08/23/18 10:02 08/23/18 10:02 Consult Discharge Plan - Plan Referrals: NONE,PCP [Primary Care Provider] - (1) Acute alcohol intoxication Qualifiers: Complication of substance-induced condition: uncomplicated Qualified Code(s): F10.929 - Alcohol use, unspecified with intoxication, unspecified (4) Depression Qualifiers: Depression Type: unspecified Qualified Code(s): F32.9 - Major depressive disorder, single episode, unspecified
[2018-08-25] MEDS ORDERED: clonazePAM 1 MG TABLET PO PRN (08:47)
--- NOTE | 2018-08-25 10:34 | Consult Note ---
Date of Encounter: 08/25/18 Time of Encounter: 10:30 Assessment & Recommendation (1) Alcohol dependence with withdrawal, unspecified Current visit: Yes Status: Acute Qualifiers: Complication of substance-induced condition: with unspecified complication Qualified Code(s): F10.239 - Alcohol dependence with withdrawal, unspecified (2) Anxiety about health Current visit: Yes Status: Acute (3) Antidepressant discontinuation syndrome Current visit: Yes Status: Acute Qualifiers: Encounter type: initial encounter Qualified Code(s): T43.205A - Adverse effect of unspecified antidepressants, initial encounter History of Present Illness Patient: known to practice within the last 3 years Requesting Physician: Amador Lau MD Reason for consult: I am irritable History of present illness: Ms. Benitez is a 37 year old female CC: Amador Lau MD Past Med Surg Social Fam HX - Past Medical History Medical history: non-contributory - Past Psychiatric History Psychiatric history: Reports: anxiety, depression Family psychiatric history: Unknown Family History of Suicide: Unknown - Past Surgical History Surgical History: cholecystectomy - Social History Smoking Status: Never smoker Smokeless Tobacco Status: No Alcohol use: heavy, recent Drug use: none Occupational status: employed Current living situation: Home - Independent Activity Level: Independent ambulation Recent Out of Country Travel Within the Last 8 Weeks: No Exposure or Possible Exposure to Illness During Travel: No - Family History Father Living Status: Still Living Hx Family Cancer: Yes Mother Living Status: Still Living Hx Family Cancer: Yes Hx Family Endocrine Disorder: Yes (hypoglycemic) Medications & Allergies Vilazodone HCl [Viibryd] 40 mg PO DAILY 06/20/18 [History] raNITIdine HCl [Zantac] 150 mg PO BID 06/20/18 [History] Folic Acid 1 mg PO DAILY tablet 06/26/18 [Rx] Thiamine (B-1) [Vitamin B-1] 100 mg PO DAILY tablet 06/26/18 [Rx] Vitamin B Complex/Vit C/Vit E [Stresstab] 1 each PO DAILY tablet 06/26/18 [Rx] Vitamin E 1,000 unit PO DAILY 08/23/18 [History] clonazePAM [Clonazepam] 1 mg PO TID PRN 08/23/18 [History] traZODone [TraZODone] 50 - 100 mg PO HS 08/23/18 [History] Allergy/AdvReac Type Severity Reaction Status Date / Time metoclopramide [From Reglan] Allergy Swelling Verified 08/23/18 12:00 of Lip/Tongue/Throat codeine AdvReac Gastrointestinal Verified 08/23/18 12:00 Upset topiramate [From Topamax] AdvReac See Verified 08/23/18 12:00 Comments Review of Systems Psychiatric: Reports: depression, anxiety, irritability, mood swings Psychiatry Exam - Constitutional Vitals: Temp Pulse Resp BP Pulse Ox 98.5 F 79 18 131/76 100 08/25/18 08:38 08/25/18 08:38 08/25/18 08:38 08/25/18 08:38 08/25/18 08:38 General appearance: age & developmentally appropriate, well-groomed, well- nourished - Musculoskeletal Gait: normal Station: shaky Strength & Tone: normal for patient - Psychiatric Patient Orientation: Yes Person, Yes Time, Yes Place Level of alertness: Alert Behavior: calm, agitated, distractible Psychomotor activity: Normal Eye Contact: Maintains Eye Contact Affect description: congruent with mood, full range Speech Volume: Normal Speech pattern: normal rate, normal rhythm, normal tone, fluent, spontaneous Language & Vocabulary: consistent with education Thought Process: Linear, Goal Oriented Thought Content: No Suicidal ideation, No Homicidal ideation, No Overt delusions Perceptual Disturbances: No Auditory hallucinations, No Visual hallucinations Attention Span Ability: Capable of Sustained Attention Memory Description: Grossly Intact Patient Reliability: Questionable Historian Fund of knowledge: Yes abstraction ability, Yes aware of current events Intelligence Estimate: Average Judgment: Limited Insight: Minimal Results - Labs Labs: Laboratory Last Values WBC 5.8 K/mcL (4.3-11.1) 08/23/18 10:02 RBC 4.59 M/mcL (3.82-4.97) 08/23/18 10:02 Hgb 15.0 g/dL (11.5-15.4) 08/23/18 10:02 Hct 43.9 % (35.3-44.9) 08/23/18 10:02 MCV 95.6 fL (83.0-100.0) 08/23/18 10:02 MCH 32.7 pg (28.0-33.3) 08/23/18 10:02 MCHC 34.2 g/dL (31.6-35.5) 08/23/18 10:02 RDW 13.8 % (11.5-14.5) 08/23/18 10:02 Plt Count 194 K/mcL (140-400) 08/23/18 10:02 MPV 9.1 fL (9.4-12.4) L 08/23/18 10:02 Immature Gran % 0.2 % (0-4) 08/23/18 10:02 Seg Neutrophils % 68.9 % 08/23/18 10:02 Lymphocytes % 22.7 % 08/23/18 10:02 Monocytes % 7.1 % 08/23/18 10:02 Eosinophils % 0.2 % 08/23/18 10:02 Basophils % 0.9 % 08/23/18 10:02 Neutrophils # 4.0 K/mcL (1.6-8.9) 08/23/18 10:02 Lymphocytes # 1.3 K/mcL (0.6-4.6) 08/23/18 10:02 Monocytes # 0.4 K/mcL (0.0-1.3) 08/23/18 10:02 Eosinophils # 0.0 K/mcL (0.0-0.6) 08/23/18 10:02 Basophils # 0.1 K/mcL (0.0-0.2) 08/23/18 10:02 Sodium 140 mEq/L (136-145) 08/23/18 10:02 Potassium 3.7 mEq/L (3.5-5.1) 08/23/18 10:02 Chloride 105 mEq/L (98-107) 08/23/18 10:02 Carbon Dioxide 23 mEq/L (23-29) 08/23/18 10:02 BUN 8 mg/dL (6-20) 08/23/18 10:02 Creatinine 0.83 mg/dL (0.60-1.20) 08/23/18 10:02 Est GFR ( Amer) > 60 (> 60) 08/23/18 10:02 Est GFR (Non-Af Amer) > 60 (> 60) 08/23/18 10:02 BUN/Creatinine Ratio 10 (6-26) 08/23/18 10:02 Glucose 140 mg/dL (70-105) H 08/23/18 10:02 Calculated Osmolality 291 (280-300) 08/23/18 10:02 Calcium 8.7 mg/dL (8.6-10.3) 08/23/18 10:02 Urine Color Yellow (Yellow) 08/23/18 10:14 Urine Clarity Clear (Clear) 08/23/18 10:14 Urine pH 6.0 pH Units (5.0-8.0) 08/23/18 10:14 Ur Specific [place] 1.012 (1.010-1.025) 08/23/18 10:14 Urine Protein Negative mg/dL (Neg-Trace) 08/23/18 10:14 Urine Glucose (UA) Normal mg/dL (Normal) 08/23/18 10:14 Urine Ketones Negative mg/dL (Negative) 08/23/18 10:14 Urine Blood Negative (Negative) 08/23/18 10:14 Urine Nitrite Negative (Negative) 08/23/18 10:14 Urine Bilirubin Negative (Negative) 08/23/18 10:14 Urine Urobilinogen Normal mg/dL (Normal) 08/23/18 10:14 Ur Leukocyte Esterase Trace (Negative) H 08/23/18 10:14 Urine Microscopic RBC 0-3 per hpf (0-3) 08/23/18 10:14 Urine Microscopic WBC 0-3 per hpf (0-3) 08/23/18 10:14 Ur Squamous Epith Cells Few per lpf (None-Few) 08/23/18 10:14 Urine Bacteria None Seen per hpf (None-Few) 08/23/18 10:14 Hyaline Casts None Seen per lpf (None-Few) 08/23/18 10:14 Urine Test Negative (Negative) 08/23/18 10:14 Salicylates < 2.5 mg/dL (15.0-30.0) L 08/23/18 10:02 Urine Opiates Screen Negative ng/mL (Qyzses=904) 08/23/18 10:14 Acetaminophen < 10 mcg/mL (10-20) L 08/23/18 10:02 Ur Barbiturates Screen Negative ng/mL (Xvohoa=417) 08/23/18 10:14 Ur Phencyclidine Scrn Negative ng/mL (Cutoff=25) 08/23/18 10:14 Ur Amphetamines Screen Negative ng/mL (Hksfgm=4678) 08/23/18 10:14 U Benzodiazepines Scrn Negative ng/mL (Zwehaz=033) 08/23/18 10:14 Urine Cocaine Screen Negative ng/mL (Cutoff= 300) 08/23/18 10:14 U Marijuana (THC) Screen Negative ng/mL (Cutoff = 50) 08/23/18 10:14 Ur Drug Screen Interp See Below 08/23/18 10:14 Ethyl Alcohol 439 mg/dL (Less than 10) H 08/23/18 10:02 Consult Discharge Plan - Plan Referrals: NONE,PCP [Primary Care Provider] -
[2018-08-25] MEDS: Thiamine (B-1) 100 MG, Folic Acid 1 MG, MVI, adult with vitamin K 10 ML in 0.9 % Sodi... IVPB SCH (17:52)
[2018-08-25] MEDS ORDERED: traZODone 50 MG TABLET PO SCH (21:00)
[2018-08-26] MEDS: *HR* LORazepam 2 MG/ML VIAL IVP PRN (06:26)
[2018-08-26] MEDS: *HR* Enoxaparin 40 MG/0.4 ML SYRINGE SQ SCH (06:28)
[2018-08-26] MEDS: Vitamin B Complex/Vit C/Vit E 1 EACH TABLET PO SCH (08:42)
[2018-08-26] MEDS: Folic Acid 1 MG TABLET PO SCH (08:42)
[2018-08-26] MEDS: Thiamine (B-1) 100 MG TABLET PO SCH (08:42)
--- NOTE | 2018-08-26 09:56 | Internal Med Progress Note ---
Hospitalist Progress Note - Encounter Date of Encounter: 08/26/18 Time of Encounter: 09:54 - Subjective Interval History: Admitted with alcohol intoxication. Long-standing history of alcohol abuse. Currently she is not displaying any signs or symptoms of withdrawal. She denies any auditory or visual hallucinations and is denying any SI/HI. She is still anticipating involuntary placement to inpatient rehabilitation facility for alcohol cessation counseling - Exam Vitals: Temp Pulse Resp BP Pulse Ox 98.2 F 81 15 114/76 100 08/26/18 08:56 08/26/18 08:56 08/26/18 08:56 08/26/18 08:56 08/26/18 08:56 Exam: PHYSICAL EXAMINATION: GENERAL: The patient is a 37-year-old female who appears to be intoxicated and is in mild distress. She is a and O 3. HEENT: Head is normocephalic and atraumatic. PERRLA LUNGS: Clear to auscultation B/L AP and L. HEART: Regular rate and rhythm, S1, S2 without murmur. ABDOMEN: Soft, nontender, and nondistended. Positive bowel sounds. No hepatosplenomegaly was noted. NEUROLOGIC: Without facial droop or slurred speech. Tremors have resolved PSYCHIATRIC: She is mildly anxious but without agitation. No evidence of auditory/visual hallucinations, she is not responding to any internal stimuli. Denies SI, denies HI SKIN: No ulceration or induration present. - Assessment and Plan (1) Acute alcohol intoxication Current Visit: Yes Status: Acute Assessment and Plan: Long-standing history of alcohol abuse Presents to ED today with alcohol intoxication with alcohol 439 Reporting that she wishes to quit drinking Also reporting suicidal ideation She was offered discharge home from the ED however she reports if she were to discharge she is afraid she would take her own life She is being admitted for psychiatric evaluation; consult psychiatry Start [facility] protocol with Ativan as well as banana bag business services associate to see in consultation to discuss discharge planning for potential inpatient rehabilitation One-to-one sitter Suicide precautions 08/26--clinically, she remained stable overnight without any complications. Withdrawal symptoms subsiding. She is denying any SI/HI and denying any auditory or visual hallucinations. She has not responded to any internal stimuli per my assessment. Tremors have since resolved. She does not appear to be withdrawing at this time. Plans are to discharge to inpatient facility for alcohol rehabilitation. In the meantime we will continue to treat with CIWA protocol and Ativan. Psychiatry seeing in consultation, appreciate recommendations. (2) Suicidal ideation Current Visit: Yes Status: Acute Assessment and Plan: Reports suicidal ideation while in the ED on this admission. ED physician florentino slipped the patient. Psychiatry has been consulted for further evaluation. At this time she continues to deny suicidal ideation. Psychiatry to see in consultation prior to discharge to determine whether or not patient continued to have suicidal ideation. If cleared by psychiatry plan is to discharge to inpatient rehabilitation facility (3) Anxiety Current Visit: No Status: Acute Assessment and Plan: Remains mildly anxious, Continue anxiolytics (4) Depression Current Visit: No Status: Acute Assessment and Plan: Continue antidepressant (5) DVT prophylaxis Current Visit: No Status: Acute Assessment and Plan: Lovenox - Time Spent with Patient Total time spent is greater than 50% in coordination of care (as documented) at patient's floor/unit and/or counseling patient: less than 15 minutes Plan of Care Discussed with: patient Internal Medicine: Result - Labs CBC & Chem 7: 08/23/18 10:02 08/23/18 10:02 Consult Discharge Plan - Plan Referrals: NONE,PCP [Primary Care Provider] - (1) Acute alcohol intoxication Qualifiers: Complication of substance-induced condition: uncomplicated Qualified Code(s): F10.929 - Alcohol use, unspecified with intoxication, unspecified (4) Depression Qualifiers: Depression Type: unspecified Qualified Code(s): F32.9 - Major depressive disorder, single episode, unspecified
[2018-08-26 13:24] VITALS: BP 100/66
--- NOTE | 2018-08-26 14:52 | Discharge Summary ---
- NOTES TO OUTPATIENT PROVIDER Notes to Outpatient Provider: d/c to inpatient rehab for ETOH abuse Date of Encounter: 08/26/18 Time of Encounter: 14:50 - Discharge Diagnosis (1) Alcohol withdrawal syndrome Priority: Primary Status: Acute Assessment and Plan: withdrawal s/sx has resolved she is being d/c to inpatient ETOH rehab facility of her own free will Qualifiers: Complication of substance-induced condition: with unspecified complication Qualified Code(s): F10.239 - Alcohol dependence with withdrawal, unspecified (2) Acute alcohol intoxication Priority: Primary Status: Resolved Qualifiers: Complication of substance-induced condition: uncomplicated Qualified Code(s): F10.929 - Alcohol use, unspecified with intoxication, unspecified (3) Suicidal ideation Priority: Secondary Status: Resolved Assessment and Plan: Again, continues to deny suicidal ideation. Discussed with the patient regarding her statement in the ED saying if she were to go home she would kill herself and she reports that she no longer feels this way. Her blood alcohol level was 439 when she was stating SI. Now that she is not intoxicated and has a more congruent mood she is denying SI. She is actually future and goal oriented and volunteering herself for inpatient admission to rehabilitation center for alcohol abuse. (4) Anxiety Priority: Secondary Status: Acute (5) Depression Priority: Secondary Status: Acute Qualifiers: Depression Type: unspecified Qualified Code(s): F32.9 - Major depressive disorder, single episode, unspecified (6) DVT prophylaxis Priority: Secondary Status: Acute Hospital course: Ms. Benitez is a 37 year old female was admitted with alcohol intoxication and suicidal ideation. She was intoxicated in the ED and was offered D/C home however, she reported that if she were to be D/C'd home that she would commit suicide. She was then placed on involuntary admission status and admitted to medical surgical unit for further observation of alcohol intoxication and withdrawal. She did experience some mild withdrawal while inpatient. Since admission she has continued to request discharge to inpatient rehabilitation facility for treatment of alcohol abuse. Currently, the patient is agreeable to treatment, future and goal oriented and denies any suicidal ideation or homicidal ideation. No signs or symptoms of withdrawal and is stable medically and ready for discharge to inpatient rehabilitation facility. Discharge discussed with: patient, nurse, senior business consultant - Time Spent with Patient Total time spent providing and/or coordinating discharge services: Less than 30 minutes - Discharge Medications Home Medications: Vilazodone HCl [Viibryd] 40 mg PO DAILY 06/20/18 [History] raNITIdine HCl [Zantac] 150 mg PO BID 06/20/18 [History] Folic Acid 1 mg PO DAILY tablet 06/26/18 [Rx] Thiamine (B-1) [Vitamin B-1] 100 mg PO DAILY tablet 06/26/18 [Rx] Vitamin B Complex/Vit C/Vit E [Stresstab] 1 each PO DAILY tablet 06/26/18 [Rx] Vitamin E 1,000 unit PO DAILY 08/23/18 [History] clonazePAM [Clonazepam] 1 mg PO TID PRN 08/23/18 [History] traZODone [TraZODone] 50 - 100 mg PO HS 08/23/18 [History] Allergies/Adverse Reactions: Allergy/AdvReac Type Severity Reaction Status Date / Time metoclopramide [From Reglan] Allergy Swelling Verified 08/23/18 12:00 of Lip/Tongue/Throat codeine AdvReac Gastrointestinal Verified 08/23/18 12:00 Upset topiramate [From Topamax] AdvReac See Verified 08/23/18 12:00 Comments Date of admission: 08/23/18 11:22 Primary care physician: PCP NONE Consults: 08/23/18 11:12 Consult to [employer] [CONS] Routine Reason for SW Consult: d/c planning inpatient ETOH rehab 08/23/18 11:15 Consult to Psychiatry [CONS] Stat Consulting Provider: Psychiatry Zohreh Reason consult: Sitter/1:1 Altered mental status Other Other reason and/or additional details: suicidal ideation [place] initiated date and time: initiated in ED Time Notified: 11:16 Call Completed: Yes Discharging clinician: Bernabe Leigh Anticipated date of discharge: 08/26/18 - Constitutional Vitals: Temp Pulse Resp BP Pulse Ox 97.9 F 83 16 100/66 99 08/26/18 13:24 08/26/18 13:24 08/26/18 13:24 08/26/18 13:24 08/26/18 13:24 General appearance: Present: A&O X 3 Exam: see exam - Head Head exam: Present: atraumatic, normocephalic - Eye Eye exam: Present: PERRL, conjuntiva pink, sclera anicteric Pupils: Present: PERRL - Neck Neck exam general surgery: Present: supple, trachea midline. Absent: lymphadenopathy - Respiratory Respiratory exam: Present: CTAB. Absent: accessory muscle use, rales, rhonchi, wheezes - Cardiovascular Cardiovascular exam: Present: RRR, +S1, +S2. Absent: diastolic murmur, gallop, rubs, systolic murmur - GI/Abdominal GI/Abdominal exam: Present: normal bowel sounds, soft, no peritoneal signs. Absent: distended, tenderness - Extremities Exam Extremities exam: Present: warm, radial pulses palpable and symmetrical. Absent: calf tenderness, cyanotic, pedal edema - Neurological Exam Neurological exam: Present: CN II-XII intact, oriented X3, no focal deficits. Absent: pronater drift, facial droop, speech deficit - Skin Skin exam: Present: dry, intact - Patient Status Disposition: Home, Self-Care Condition: Fair Functional capacity at discharge: independent ambulation Overall status at discharge: patient is progressing back to baseline - Discharge Instructions Follow Up With: NONE,PCP [Primary Care Provider] - - Diet and Activity Activity: increase activity as tolerated, resume usual activities as tolerated Diet: diabetic diet, low fat, low cholesterol, low salt diet
== END 2018-08-26 16:04 | disposition home or self-care (01) ==
LOC: EMEROOARM 09:29 → 3BNU 09:29
PROVIDERS: ADMIT Internal Medicine; ATTEND Internal Medicine